=== PATIENT | female | born 1985 | race Caucasian/White ===

== ENCOUNTER 2022-08-16 10:04 | Emergency (ER) | payer OTHER, SELFPAY ==
[2022-08-16 10:10] VITALS: BP 156/108; PULSE 65; RESP 18; TEMP 36.5; O2SAT 99; BMI 32.0
--- NOTE | 2022-08-16 10:31 | ED.GENADULT ---
HPI - General Adult General Chief complaint: ETOH/Substance Use Stated complaint: Alcohol detox Time Seen by Provider: 08/16/22 10:30 Source: patient and family (mother) Mode of arrival: ambulatory Limitations: no limitations History of Present Illness HPI narrative: Patient is a 36 year old assigned female at with no reported medical history presenting to the emergency department today requesting alcohol detox. Patient states that she has been drinking 7-8 nips of alcohol per day for quite awhile. Patient states that in the past she was able to titrate herself down but lately she has not been able to and she would like help. Patient denies any dizziness, lightheadedness, abdominal pain, vomiting, fever, chills, blurry vision, double vision, loss of vision, chest pain, difficulty breathing, shortness of breath, back pain, night sweats, pain with urination, increased urinary frequency, increased urinary urgency, blood in her urine or stool, syncope or a near syncopal episode, recent trauma or falls, bowel incontinence, bladder incontinence, bowel retention, bladder retention, or any other complaints at this time. Onset (ago): month(s) Relieving factors: none Exacerbating factors: none Treatments prior to arrival: none Related Data Allergies Allergy/AdvReac Type Severity Reaction Status Date / Time No Known Allergies Allergy Verified 08/16/22 10:52 Review of Systems Constitutional: Constitutional: Reports no additional constitutional complaints, Denies chills, Denies fever(s) and Denies night sweats Eyes: Eyes: Reports no additional eye complaints, Denies blurry vision, Denies change in vision, Denies diplopia, Denies eye discharge, Denies loss of vision and Denies eye pain ENT: Denies dizziness Cardiovascular: Cardiovascular: Reports no additional cardiovascular complaints, Denies chest pain, Denies lightheadedness, Denies Loss of Consciousness and Denies dyspnea Respiratory: Respiratory: Reports no additional respiratory complaints and Denies dyspnea Gastrointestinal: Gastrointestinal: Reports no additional gastrointestinal complaints, Denies abdominal pain, Denies melena, Denies hematochezia, Denies change in bowel habits and Denies change in stool character Genitourinary: Genitourinary: Denies hematuria, Denies urinary frequency, Denies dysuria, Denies urinary incontinence, Denies urinary hesitancy and Denies urinary urgency Musculoskeletal: Musculoskeletal: Reports no additional musculoskeletal complaints, Denies numbness and Denies tingling Neurologic: Denies dizziness, Denies loss of vision, Denies numbness and Denies tingling Psychiatric: Psychiatric: Reports no additional psychiatric complaints Endocrine: Endocrine: Reports no additional endocrine complaints Hematologic/Lymphatic: Hematologic/Lymphatic: Reports no additional hematologic/lymphatic complaints Allergic/Immunologic: Allergic/Immunologic: Reports no additional allergic/immunologic complaints PMFSH Past Medical History Attestation statement: The following information was validated with the patient. Source: old records reviewed, obtained from family (patient's mother) and nursing notes reviewed Social History Social History Advance Directives: No Advance Directives Information Provided: Yes Patient : No Physical Exam ED Vital Signs: Vital Signs - 24 hr 08/16/22 10:10 08/16/22 14:18 Temperature 97.7 F Pulse Rate 65 73 Respiratory Rate 18 16 Blood Pressure 156/108 H 146/93 H Pulse Oximetry 99 96 Oxygen Delivery Method Room Air Room Air BMI result Body Mass Index 32.0 Const General: cooperative, no acute distress, alert and awake Nutritional Appearance: well nourished Orientation/consciousness: patient oriented x3 Limitations: no limitations HENMT Head: Yes normal to inspection and Yes atraumatic Ears: hearing grossly normal bilaterally and external ears normal General nose exam: Normal external nose present, no nasal discharge noted and no epistaxis Face and sinus: Yes normal facial exam, No abrasion and No laceration Mouth: Normal oral and palatal mucosa present, no drooling and no muffled voice Eyes General: appearance normal, both eyes and all related structures Periorbital: periorbital findings normal Eyelids: Yes eyelids normal Conjunctivae: conjunctivae normal Pupils: Equal, round and reactive pupils present EOM: EOMs intact bilaterally Neck Neck: Yes normal visual inspection, Yes full ROM and Yes no lymphadenopathy Chest Chest palpation & inspection: normal inspection of the chest Resp Effort & Inspection: normal respiratory effort and able to speak in complete sentences GI Inspection: Yes normal to inspection Palpation (GI): Soft to palpation, not firm, nontender, no guarding and not rigid Neuro General: patient oriented x3 and moves all extremities Cranial nerves: Yes Equal, round and reactive pupils present Cognition (Neuro): normal cognition Motor exam (neuro): 5/5 motor strength present throughout Sensory Exam: Normal double simultaneous stimulation for sensation Coordination: [id number] test normal Extrem General: Yes normal to inspection, Yes full ROM and Yes capillary refill normal Psych Appearance: grossly normal Mental Status: mental status grossly normal Affect: normal affect Attitude: cooperative Thought process: Normal thought process present Thought content: Normal thought content present Insight: Good insight present (Psych) Medications Administered Discontinued Medications Generic Name Dose Route Start Last Admin Trade Name Sander PRN Reason Stop Dose Admin Sodium Chloride 1,000 mls @ 999 mls/hr 08/16/22 11:45 08/16/22 13:38 Ns IV 08/16/22 12:45 Infused .Q1H1M ROSLYN Infusion Ondansetron HCl 4 mg 08/16/22 12:18 08/16/22 12:32 Ondansetron Hcl 4 Mg/2 Ml Vial IVPUSH 08/16/22 12:19 4 mg ONCE ONE Administration Medical Decision Making Medical Decision Making [facility] Narrative: Patient is a 36 year old assigned female at with no reported medical history presenting to the emergency department today requesting alcohol detox. Patient's physical exam was unremarkable. Patient's blood work was unremarkable. Patient met with the recovery team who was able to get her accepted into [facility]. I explained my physical exam findings as well as all test results to the patient and the patient's mother. I answered all questions asked by the patient and the patient's mother. I stressed the importance of the patient taking her medication as prescribed. I stressed the importance of the patient following up with her primary care provider. I stressed the importance of the patient returning to the emergency department immediately if her symptoms were to worsen or if she were to develop any dizziness, shortness of breath, difficulty breathing, chest pain, blurry vision, loss of vision, nausea, vomiting, abdominal pain, fever, chills, back pain, or any other complaints. Patient verbalized agreement and understanding with this treatment plan and discharge. Differential Diagnosis Differential Diagnoses: The differential diagnosis associated with the presentation includes alcohol detox Lab Data [facility] Lab Attestation statement: I reviewed the patient's lab results. 08/16/22 11:02 08/16/22 11:02 Labs: Lab Results 08/16/22 08/16/22 08/16/22 Range/Units 11:02 11:02 11:02 WBC 9.5 (4.8-10.8) X10*3/uL RBC 4.59 (4.20-5.50) X10*6/uL Hgb 14.4 (12.0-16.0) g/dl Hct 41.7 (37.0-47.0) % MCV 90.8 (80.0-98.0) fL MCH 31.4 (27.0-33.0) pg MCHC 34.5 (31.0-35.0) g/dl RDW 14.1 (11.0-16.0) % Plt Count 265 (160-400) X10*3/uL MPV 10.6 (9.4-12.3) fL Immature Gran % (Auto) 0.3 (0.0-0.4) % Neut % (Auto) 79.2 H (45-73) % Lymph % (Auto) 14.2 L (20-40) % Doddridge % (Auto) 5.5 (2-11) % Eos % (Auto) 0.3 (0-4) % Baso % (Auto) 0.5 (0-2) % Lymph # (Auto) 1.3 (1.2-4.9) X10*3/uL Doddridge # (Auto) 0.5 (0.1-1.2) X10*3/uL Eos # (Auto) 0.0 (0.0-0.4) X10*3/uL Baso # (Auto) 0.1 (0.0-0.2) X10*3/uL Abs Immat Gran (auto) 0.03 (0.00-0.03) X10*3/uL Absolute Neuts (auto) 7.5 (2.0-8.3) x10*3/uL Absolute Nucleated RBC 0.000 (0.0-0.012) X10*3/uL Nucleated RBC % (auto) 0.0 (0.0-0.2) /100WBC Sodium 140 (135-145) mmol/L Potassium 4.0 (3.3-5.1) mmol/L Chloride 105 (96-108) mmol/L Carbon Dioxide 19 L (22-29) mmol/L Anion Gap 20 (12-20) BUN 5 L (9-16) mg/dL Creatinine 0.84 (0.5-1.4) mg/dL Estim Creat Clear Calc 91.2 Estimated GFR > 60 Random Glucose 112 (60-115) mg/dL Calcium 9.1 (8.4-10.2) mg/dL Total Bilirubin 0.8 (0.0-1.0) mg/dL Direct Bilirubin 0.2 (0.0-0.5) mg/dL AST 83 H (5-31) U/L ALT 48 H (0-31) U/L Alkaline Phosphatase 91 (39-117) U/L Total Protein 7.1 (6.5-8.0) g/dL Albumin 4.0 (3.5-5.0) g/dL Lipase 24 (8-78) U/L Ethyl Alcohol 108 mg/dL COVID-19 (CONSTANTINE) (Negative) COVID-19 Clin Com 08/16/22 Range/Units 11:34 WBC (4.8-10.8) X10*3/uL RBC (4.20-5.50) X10*6/uL Hgb (12.0-16.0) g/dl Hct (37.0-47.0) % MCV (80.0-98.0) fL MCH (27.0-33.0) pg MCHC (31.0-35.0) g/dl RDW (11.0-16.0) % Plt Count (160-400) X10*3/uL MPV (9.4-12.3) fL Immature Gran % (Auto) (0.0-0.4) % Neut % (Auto) (45-73) % Lymph % (Auto) (20-40) % Doddridge % (Auto) (2-11) % Eos % (Auto) (0-4) % Baso % (Auto) (0-2) % Lymph # (Auto) (1.2-4.9) X10*3/uL Doddridge # (Auto) (0.1-1.2) X10*3/uL Eos # (Auto) (0.0-0.4) X10*3/uL Baso # (Auto) (0.0-0.2) X10*3/uL Abs Immat Gran (auto) (0.00-0.03) X10*3/uL Absolute Neuts (auto) (2.0-8.3) x10*3/uL Absolute Nucleated RBC (0.0-0.012) X10*3/uL Nucleated RBC % (auto) (0.0-0.2) /100WBC Sodium (135-145) mmol/L Potassium (3.3-5.1) mmol/L Chloride (96-108) mmol/L Carbon Dioxide (22-29) mmol/L Anion Gap (12-20) BUN (9-16) mg/dL Creatinine (0.5-1.4) mg/dL Estim Creat Clear Calc Estimated GFR Random Glucose (60-115) mg/dL Calcium (8.4-10.2) mg/dL Total Bilirubin (0.0-1.0) mg/dL Direct Bilirubin (0.0-0.5) mg/dL AST (5-31) U/L ALT (0-31) U/L Alkaline Phosphatase (39-117) U/L Total Protein (6.5-8.0) g/dL Albumin (3.5-5.0) g/dL Lipase (8-78) U/L Ethyl Alcohol mg/dL COVID-19 (CONSTANTINE) Negative (Negative) COVID-19 Clin Com See Note Independent Historian Clinical information obtained from an independent historian. History obtained from or confirmed by: Parent (patient's mother) Discharge Plan Discharge Clinical Impression: Alcoholic intoxication, Alcohol abuse Patient Disposition: Home, Self-Care Instructions: Abuse of Alcohol (ED) Additional Instructions: Follow up with your primary care provider. Return to the emergency department immediately if your symptoms worsen or if you develop any dizziness, shortness of breath, difficulty breathing, chest pain, blurry vision, loss of vision, nausea, vomiting, abdominal pain, fever, chills, back pain, or any other complaints. Referrals: Anika Gonzalez MD [Primary Care Provider] - Print Language: Maori
[2022-08-16 11:06] LABS: MANUAL DIFF FLAG NO
[2022-08-16 11:09] LABS: Basophils Absolute Auto 0.1 X10*3/uL (0.0-0.2); Basophils Percent Auto 0.5 % (0-2); Eosinophils Percent Auto 0.3 % (0-4); Hematocrit 41.7 % (37.0-47.0); Hemoglobin 14.4 g/dl (12.0-16.0); Imm Gran Abs Auto 0.03 X10*3/uL (0.00-0.03); Imm Gran Pct Auto 0.3 % (0.0-0.4); Lymphocytes Absolute Auto 1.3 X10*3/uL (1.2-4.9); Lymphocytes Percent Auto 14.2 % (20-40); Mean Corpuscular HGB Conc 34.5 g/dl (31.0-35.0); Mean Corpuscular Hemoglobin 31.4 pg (27.0-33.0); Mean Corpuscular Volume 90.8 fL (80.0-98.0); Mean Platelet Volume 10.6 fL (9.4-12.3); Monocytes Absolute Auto 0.5 X10*3/uL (0.1-1.2); Monocytes Percent Auto 5.5 % (2-11); Neutrophils Absolute Auto 7.5 x10*3/uL (2.0-8.3); Neutrophils Percent Auto 79.2 % (45-73); Platelet Count 265 X10*3/uL (160-400); Red Blood Count 4.59 X10*6/uL (4.20-5.50); Red Cell Distribution Width 14.1 % (11.0-16.0); White Blood Count 9.5 X10*3/uL (4.8-10.8)
[2022-08-16 11:28] LABS: Ethanol 108 mg/dL
--- NOTE | 2022-08-16 11:42 | MHC.RECOVSUP ---
Met with pt in ED21 for potential ATS bed search. Pt reports drinking 8 nips a day for about 3 months after having been sober for about 2-3 months. Pt has no history of ATS or PIERRE but would like to go to an ATS facility. Pt was provided with resources and had no additional questions or concerns at this time.
[2022-08-16] MEDS: 0.9 % Sodium Chloride 1,000 ML 999 ML IV (11:44)
[2022-08-16 11:53] LABS: Alanine Aminotransferase 48 U/L (0-31); Alkaline Phosphatase 91 U/L (39-117); Anion Gap 20 (12-20); Aspartate Amino Transferase 83 U/L (5-31); Bilirubin Direct 0.2 mg/dL (0.0-0.5); Bilirubin Total 0.8 mg/dL (0.0-1.0); Blood Urea Nitrogen 5 mg/dL (9-16); Calcium 9.1 mg/dL (8.4-10.2); Carbon Dioxide 19 mmol/L (22-29); Chloride 105 mmol/L (96-108); Creatinine Clr Calc Pharmacy 91.2; Estimated Glomerular Filt Rate > 60; Glucose Random 112 mg/dL (60-115); Lipase 24 U/L (8-78); Sodium 140 mmol/L (135-145); Total Protein 7.1 g/dL (6.5-8.0)
[2022-08-16 11:58] LABS: COVID-19 Test Negative (Negative); IDNOW Serial# 08D9AD1C
[2022-08-16] MEDS: ondansetron HCL 4 MG/2 ML VIAL IVPUSH (12:32)
[2022-08-16 14:18] VITALS: BP 146/93; PULSE 73; RESP 16; O2SAT 96
--- NOTE | 2022-08-16 14:23 | MHC.RECOVSUP ---
Pt accepted to [facility], pts mother will drive her there upon discharge.
== END 2022-08-16 14:58 | disposition home or self-care (01) ==
PROVIDERS: Physician Assistant Medical; Emergency Provider Student in an Organized Health Care Education/Training Program; PCP Internal Medicine
DX: F10.129 Alcohol abuse with intoxication, unspecified (principal); Y90.5 Blood alcohol level of 100-119 mg/100 ml; Z20.822 Contact with and (suspected) exposure to COVID-19; Z20.828 Contact with and (suspected) exposure to other viral communicable diseases; Z79.899 Other long term (current) drug therapy
CPT/HCPCS: 36415; 80053; 82077; 82248; 83690; 85025; 87635; 96361; 96374; 99284; 99285; J2405

== ENCOUNTER → 2022-08-24 13:42 | Outpatient (BNVA) | payer OTHER, SELFPAY | PROVIDERS: PCP Internal Medicine; Visit Provider Nurse Practitioner Psychiatric/Mental Health | DX: Z13.89 Encounter for screening for other disorder (principal) ==

== ENCOUNTER → 2022-09-08 10:31 | Outpatient (BNVA) | payer OTHER, SELFPAY | PROVIDERS: PCP Internal Medicine; Visit Provider Nurse Practitioner Psychiatric/Mental Health | DX: F10.20 Alcohol dependence, uncomplicated (principal); Z51.81 Encounter for therapeutic drug level monitoring; Z32.02 Encounter for pregnancy test, result negative | CPT/HCPCS: 80305; 81025; 96372 ==

== ENCOUNTER → 2022-10-07 13:19 | Outpatient (BNVA) | payer OTHER, SELFPAY | PROVIDERS: PCP Internal Medicine; Visit Provider Nurse Practitioner Psychiatric/Mental Health | DX: F10.20 Alcohol dependence, uncomplicated (principal); Z51.81 Encounter for therapeutic drug level monitoring; Z32.00 Encounter for pregnancy test, result unknown; Z79.899 Other long term (current) drug therapy | CPT/HCPCS: 80305; 81025; 96372 ==

== ENCOUNTER 2022-11-07 15:26 | Outpatient (AMB) | payer OTHER, SELFPAY ==
--- NOTE | 2022-11-07 15:31 | A.OFFVIS_ITS ---
Intake Vital Signs 11/07/22 15:39 BP 132/80 Blood Pressure Location Lt radial Position Sitting Pulse 82 Pulse Source Pulse Oximeter Pulse Oximetry (%) 99 Oxygen Delivery Method Room Air Intake Visit Reasons: Kamala Inj Intake Note: the patient presents for a kamala inj Consultant Nurse Required: No Allergies amoxicillin Allergy (Unknown, Verified 11/07/22 15:31) Unknown Do you need a note to return to daycare/school/sports/work: No HPI Kamala Inj HPI Details Patient presents for follow up Reports that she continues to do well with recover Tolerating injection. Denies any cravings Review of Systems Const Reports as per HPI and Reports no additional complaints Physical Exam Vital Signs: Last Vital Signs Pulse 82 11/07/22 15:39 BP 132/80 11/07/22 15:39 Pulse Ox 99 11/07/22 15:39 Oxygen Delivery Method Room Air 11/07/22 15:39 Const General: cooperative, healthy appearing, comfortable and no acute distress Nutritional Appearance: average body habitus Orientation/consciousness: patient oriented x3 Limitations: no limitations Neuro General: patient oriented x3 Psych Appearance: grossly normal Mental Status: mental status grossly normal Speech and movement: Normal speech and movement present Affect: normal affect Attitude: cooperative Thought process: Normal thought process present Thought content: Normal thought content present Insight: Good insight present (Psych) Judgement: Good judgement present (Psych) Office Meds Vivitrol ER Performing Provider: Juanita Jean-Baptiste CNP Administered by: Shilpi Swift RN on 11/07/22 16:09 Dose Route Admin Location Lot Number Expiration Date NDC Quality Assurance Monitor Chassis 380 mg IM LG [id number] 03/23/25 [id number] [employer] Comments: T/W assessed for s/s of infection, no pain, no swelling, no redness, no fever, no exudate. Pt reminded to monitor for above and call the [facility]. Pt verbalized understanding. Pt tolerated injection. Results AMB 14 Panel Urine Drug Screen Urine Marijuana (THC) Negative Last Edit by Jolynn Burk CMA on 11/07/22 15:41 Urine Cocaine Negative Last Edit by Jolynn Burk CMA on 11/07/22 15:41 Urine Morphine Negative Last Edit by Jolynn Burk CMA on 11/07/22 15:41 Urine Methamphetamine Negative Last Edit by Jolynn Burk CMA on 11/07/22 15:41 Urine Amphetamine Negative Last Edit by Jolynn Burk CMA on 11/07/22 15:4 1 Urine Benzodiazepine Negative Last Edit by Jolynn Burk CMA on 11/07/22 15:41 Urine Barbiturates Negative Last Edit by Jolynn Burk CMA on 11/07/22 15: 41 Urine Methadone Negative Last Edit by Jolynn Burk CMA on 11/07/22 15:41 Urine Buprenorphine Negative Last Edit by Jolynn Burk CMA on 11/07/22 15 :41 Urine Tricyclic Antidepressant Negative Last Edit by Jolynn Burk CMA on 11/07/22 15:41 Urine MDMA Negative Last Edit by Jolynn Burk CMA on 11/07/22 15:41 Urine Oxycodone Negative Last Edit by Jolynn Burk CMA on 11/07/22 15:41 Urine Phencyclidine Negative Last Edit by Jolynn Burk CMA on 11/07/22 15 :41 Urine Propoxyphene Negative Last Edit by Jolynn Burk CMA on 11/07/22 15: 41 AMB Test Urine AMB Test Urine Negative Last Edit by Jolynn Burk CMA on 15:42 Results Reviewed Results Reviewed: Laboratory Last Values [facility] Negative 11/07/22 15:32 POC Urine Buprenorphine Negative 11/07/22 15:32 POC Urine Morphine Negative 11/07/22 15:32 POC Urine Oxycodone Negative 11/07/22 15:32 POC Urine Methadone Negative 11/07/22 15:32 POC Urine Propoxyphene Negative 11/07/22 15:32 POC Urine Barbiturates Negative 11/07/22 15:32 POC U Tricyclic Antidpr Negative 11/07/22 15:32 POC Urine PCP Negative 11/07/22 15:32 POC Ur Amphetamines Negative 11/07/22 15:32 POC Ur Methamphetamine Negative 11/07/22 15:32 POC Urine MDMA Negative 11/07/22 15:32 POC Ur Benzodiazepine Negative 11/07/22 15:32 POC Urine Cocaine Negative 11/07/22 15:32 POC Ur Marijuana (THC) Negative 11/07/22 15:32 Assessment & Plan Assessment & Plan (1) Alcohol use disorder, severe, dependence: Code(s): F10.20 - Alcohol dependence, uncomplicated Plan: * tolerated injection * relapse prevention discussion * follow up 4 weeks Orders: Orders AMB Naltrexone Injection Patient Supplied Today F10.20 - Alcohol dependence, uncomplicated AMB 14 Panel Urine Drug Screen Today Z51.81 - Encounter for therapeutic drug level monitoring AMB HCG Urine Test Today Z32.01 - Encounter for test, result positive, Z32.02 - Encounter for test, result negative Coding Level of Care Code Est Pt Level 3 (09383) Diagnoses Alcohol use disorder, severe, dependence F10.20
[2022-11-07 15:39] VITALS: BP 132/80; PULSE 82; O2SAT 99
== END 2022-11-07 16:10 | disposition home or self-care (01) ==
LOC: HO.HCC 15:26
PROVIDERS: PCP Internal Medicine; Visit Provider Nurse Practitioner Psychiatric/Mental Health
DX: F10.20 Alcohol dependence, uncomplicated (principal)
CPT/HCPCS: 99213; J2315

== ENCOUNTER → 2022-11-07 15:26 | Outpatient (BNVA) | payer OTHER, SELFPAY | PROVIDERS: PCP Internal Medicine; Visit Provider Nurse Practitioner Psychiatric/Mental Health | DX: F10.20 Alcohol dependence, uncomplicated (principal); Z51.81 Encounter for therapeutic drug level monitoring; Z32.00 Encounter for pregnancy test, result unknown | CPT/HCPCS: 80305; 81025; 96372 ==

== ENCOUNTER 2022-12-09 09:22 | Outpatient (AMB) | payer OTHER, SELFPAY ==
--- NOTE | 2022-12-09 09:24 | MHC.OFFVIS ---
Intake Vital Signs 12/09/22 09:33 BP 128/86 Blood Pressure Location Lt radial Position Sitting Pulse 73 Pulse Source Pulse Oximeter Pulse Oximetry (%) 97 Oxygen Delivery Method Room Air Intake Visit Reasons: Kamala Inj Intake Note: the patient presents for a kamala inj Ios Architect Required: No Allergies amoxicillin Allergy (Unknown, Verified 12/09/22 09:27) Unknown Do you need a note to return to daycare/school/sports/work: No HPI Kamala Inj HPI Details Patient presents for follow-up in Vivitrol injection. Reports that she continues to do well with recovery. Did discuss occasional thoughts of drinking and slight anxiety around this. Reviewed coping strategies and supports. 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 No questions or concerns at this time Review of Systems Const Reports as per HPI and Reports no additional complaints Physical Exam Vital Signs: Last Vital Signs Pulse 73 12/09/22 09:33 BP 128/86 12/09/22 09:33 Pulse Ox 97 12/09/22 09:33 Oxygen Delivery Method Room Air 12/09/22 09:33 Const General: cooperative, healthy appearing, comfortable and no acute distress Nutritional Appearance: average body habitus Orientation/consciousness: patient oriented x3 Limitations: no limitations Neuro General: patient oriented x3 Psych Appearance: grossly normal Mental Status: mental status grossly normal Speech and movement: Normal speech and movement present Affect: normal affect Attitude: cooperative Thought process: Normal thought process present Thought content: Normal thought content present Insight: Good insight present (Psych) Judgement: Good judgement present (Psych) Office Meds Vivitrol ER Performing Provider: Juanita Jean-Baptiste CNP Administered by: Flower Asher RN on 12/09/22 09:58 Dose Route Admin Location Lot Number Expiration Date NDC Grounds And Nursery Specialist 380 mg IM RG [id number] 03/23/25 [id number] [employer] Comments: No redness, warmth or drainage to prior injection site. Inj admin today to RG, pt lyric well. Educated on s/sx of infection and instructed to call [facility] with any questions. Results AMB 14 Panel Urine Drug Screen Urine Marijuana (THC) Positive Last Edit by Jolynn Burk CMA on 12/09/22 09:35 Urine Cocaine Negative Last Edit by Jolynn Burk CMA on 12/09/22 09:35 Urine Morphine Negative Last Edit by Jolynn Burk CMA on 12/09/22 09:35 Urine Methamphetamine Negative Last Edit by Jolynn Burk CMA on 12/09/22 09:35 Urine Amphetamine Negative Last Edit by Jolynn Burk CMA on 12/09/22 09:35 Urine Benzodiazepine Negative Last Edit by Jolynn Burk CMA on 12/09/22 09:35 Urine Barbiturates Negative Last Edit by Jolynn Burk CMA on 12/09/22 09:35 Urine Methadone Negative Last Edit by Jolynn Burk CMA on 12/09/22 09:35 Urine Buprenorphine Negative Last Edit by Jolynn Burk CMA on 12/09/22 09:35 Urine Tricyclic Antidepressant Negative Last Edit by Jolynn Burk CMA on 12/09/22 09:35 Urine MDMA Negative Last Edit by Jolynn Burk CMA on 12/09/22 09:35 Urine Oxycodone Negative Last Edit by Jolynn Burk CMA on 12/09/22 09:35 Urine Phencyclidine Negative Last Edit by Jolynn Burk CMA on 12/09/22 09:35 Urine Propoxyphene Negative Last Edit by Jolynn Burk CMA on 12/09/22 09:35 AMB Test Urine AMB Test Urine Negative Last Edit by Jolynn Burk CMA on 12/09/22 09:36 Results Reviewed Results Reviewed: Laboratory Last Values [facility] Negative 12/09/22 09:27 POC Urine Buprenorphine Negative 12/09/22 09:27 POC Urine Morphine Negative 12/09/22 09:27 POC Urine Oxycodone Negative 12/09/22 09:27 POC Urine Methadone Negative 12/09/22 09:27 POC Urine Propoxyphene Negative 12/09/22 09:27 POC Urine Barbiturates Negative 12/09/22 09:27 POC U Tricyclic Antidpr Negative 12/09/22 09:27 POC Urine PCP Negative 12/09/22 09:27 POC Ur Amphetamines Negative 12/09/22 09:27 POC Ur Methamphetamine Negative 12/09/22 09:27 POC Urine MDMA Negative 12/09/22 09:27 POC Ur Benzodiazepine Negative 12/09/22 09:27 POC Urine Cocaine Negative 12/09/22 09:27 POC Ur Marijuana (THC) Positive 12/09/22 09:27 Assessment & Plan Assessment & Plan (1) Alcohol use disorder, severe, dependence: Code(s): F10.20 - Alcohol dependence, uncomplicated Plan: Relapse prevention discussion Tolerated injection Follow up 1 month Orders: Orders AMB Naltrexone Injection Patient Supplied 12/09/22 F10.20 - Alcohol dependence, uncomplicated AMB 14 Panel Urine Drug Screen 12/09/22 Z51.81 - Encounter for therapeutic drug level monitoring AMB HCG Urine Test 12/09/22 Z32.01 - Encounter for test, result positive, Z32.02 - Encounter for test, result negative Coding Level of Care Code Est Pt Level 3 (84473) Diagnoses Alcohol use disorder, severe, dependence F10.20
[2022-12-09 09:33] VITALS: BP 128/86; PULSE 73; O2SAT 97
== END 2022-12-09 10:03 | disposition home or self-care (01) ==
LOC: HO.HCC 09:22
PROVIDERS: PCP Internal Medicine; Visit Provider Nurse Practitioner Psychiatric/Mental Health
DX: F10.20 Alcohol dependence, uncomplicated (principal)
CPT/HCPCS: 99213; J2315

== ENCOUNTER → 2022-12-09 09:22 | Outpatient (BNVA) | payer OTHER, SELFPAY | PROVIDERS: PCP Internal Medicine; Visit Provider Nurse Practitioner Psychiatric/Mental Health | DX: F10.20 Alcohol dependence, uncomplicated (principal) | CPT/HCPCS: 80305; 81025; 96372 ==

== ENCOUNTER 2023-01-09 09:49 | Outpatient (AMB) | payer OTHER, SELFPAY ==
--- NOTE | 2023-01-09 09:57 | AM.OFFVISNUR ---
Intake Vital Signs 01/09/23 10:07 BP 124/82 Blood Pressure Location Lt radial Position Sitting Pulse 80 Pulse Source Pulse Oximeter Pulse Oximetry (%) 99 Oxygen Delivery Method Room Air Intake Visit Reasons: Kamala Inj Intake Note: the patient presents for a kamala inj Wet Cotton Feeder Required: No Allergies amoxicillin Allergy (Unknown, Verified 01/09/23 09:57) Unknown Do you need a note to return to daycare/school/sports/work: No Results AMB 14 Panel Urine Drug Screen Urine Marijuana (THC) Positive Last Edit by Jolynn Burk CMA on 01/09/23 10:05 Urine Cocaine Negative Last Edit by Jolynn Burk CMA on 01/09/23 10:05 Urine Morphine Negative Last Edit by Jolynn Burk CMA on 01/09/23 10:05 Urine Methamphetamine Negative Last Edit by Jolynn Burk CMA on 01/09/23 10:05 Urine Amphetamine Negative Last Edit by Jolynn Burk CMA on 01/09/23 10:05 Urine Benzodiazepine Negative Last Edit by Jolynn Burk CMA on 01/09/23 10:05 Urine Barbiturates Negative Last Edit by Jolynn Burk CMA on 01/09/23 10:05 Urine Methadone Negative Last Edit by Jolynn Burk CMA on 01/09/23 10:05 Urine Buprenorphine Negative Last Edit by Jolynn Burk CMA on 01/09/23 10:05 Urine Tricyclic Antidepressant Negative Last Edit by Jolynn Burk CMA on 01/09/23 10:05 Urine MDMA Negative Last Edit by Jolynn Burk CMA on 01/09/23 10:05 Urine Oxycodone Negative Last Edit by Jolynn Burk CMA on 01/09/23 10:05 Urine Phencyclidine Negative Last Edit by Jolynn Burk CMA on 01/09/23 10:05 Urine Propoxyphene Negative Last Edit by Jolynn Burk CMA on 01/09/23 10:05 AMB Test Urine AMB Test Urine Negative Last Edit by Jolynn Burk CMA on 01/09/23 10:09 Coding Assessment & Plan Assessment & Plan Orders: Orders AMB HCG Urine Test Today Z32.01 - Encounter for test, result positive, Z32.02 - Encounter for test, result negative AMB 14 Panel Urine Drug Screen Today F10.20 - Alcohol dependence, uncomplicated
[2023-01-09 10:07] VITALS: BP 124/82; PULSE 80; O2SAT 99
== END 2023-01-09 10:56 | disposition home or self-care (01) ==
PROVIDERS: PCP Internal Medicine; Visit Provider Nurse Practitioner Family
DX: Z32.02 Encounter for pregnancy test, result negative (principal); Z32.01 Encounter for pregnancy test, result positive; F10.20 Alcohol dependence, uncomplicated
CPT/HCPCS: J2315

== ENCOUNTER → 2023-01-09 09:49 | Outpatient (BNVA) | payer OTHER, SELFPAY | PROVIDERS: PCP Internal Medicine | DX: F10.20 Alcohol dependence, uncomplicated (principal) | CPT/HCPCS: 80305; 81025; 96372 ==

== ENCOUNTER 2023-02-07 15:26 | Outpatient (AMB) | payer OTHER, SELFPAY ==
--- NOTE | 2023-02-07 15:43 | AM.OFFVISNUR ---
Intake Vital Signs 02/07/23 15:44 BP 122/78 Blood Pressure Location Lt radial Position Sitting Pulse 63 Pulse Source Pulse Oximeter Pulse Oximetry (%) 98 Oxygen Delivery Method Room Air Intake Visit Reasons: Kamala Inj Intake Note: the patient is here for a kamala inj Orchardist Required: No Allergies amoxicillin Allergy (Unknown, Verified 02/07/23 15:45) Unknown Do you need a note to return to daycare/school/sports/work: No Nursing Note Met with pt for AUD follow up and Vivitrol injection. Pt reports this is 6th injection and will be 6 months since last drink on 02/15. Pt reports father is starting treatment next week for newly diagnosed cancer. 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 Pt reports she has attended AA, gone to counseling, and utilized a men's golf coach in the past but does not find them helpful right now. Pt reports having a lot of family support which has been helpful in maintaining abstinence. Denies questions or concerns at this time. Office Meds Vivitrol 380 mg intramuscular suspension,extended release Performing Provider: Juanita Jean-Baptiste CNP Performing Location: [facility] [[email or web address] Administered by: Loraine Barnhart on 02/07/23 16:05 Dose Route Admin Location Dispensed Lot Number Expiration Date FORMERLY NAMED [facility] Heavy Equipment Service Manager 380 mg IM RG 380 mg 2023-1012T 06/21/25 04731-254-22 [employer] Comments: No warmth, or redness to previous injection site. Pt tolerated injection well, educated to call [facility] with any questions or concerns, educated to monitor injection site for redness, warmth, or drainage. Results AMB Test Urine AMB Test Urine Negative Last Edit by Jolynn Burk CMA on 02/07/23 15:46 Coding Assessment & Plan Assessment & Plan Orders: Orders AMB Naltrexone Injection Patient Supplied Today F10.20 - Alcohol dependence, uncomplicated AMB HCG Urine Test Today Z32.01 - Encounter for test, result positive, Z32.02 - Encounter for test, result negative
[2023-02-07 15:44] VITALS: BP 122/78; PULSE 63; O2SAT 98
== END 2023-02-07 15:59 | disposition home or self-care (01) ==
PROVIDERS: PCP Internal Medicine
DX: Z32.02 Encounter for pregnancy test, result negative (principal); Z32.01 Encounter for pregnancy test, result positive; F10.20 Alcohol dependence, uncomplicated
CPT/HCPCS: J2315

== ENCOUNTER → 2023-02-07 15:26 | Outpatient (BNVA) | payer OTHER, SELFPAY | PROVIDERS: PCP Internal Medicine; Visit Provider Nurse Practitioner Family | DX: F10.20 Alcohol dependence, uncomplicated (principal) | CPT/HCPCS: 81025; 96372 ==

== ENCOUNTER 2023-03-07 10:29 | Outpatient (AMB) | payer OTHER, SELFPAY ==
--- NOTE | 2023-03-07 10:33 | MHC.OFFVIS ---
Intake Vital Signs 03/07/23 10:41 BP 110/70 Blood Pressure Location Lt radial Position Sitting Pulse 74 Pulse Source Pulse Oximeter Pulse Oximetry (%) 97 Oxygen Delivery Method Room Air Intake Visit Reasons: Kamala Inj Intake Note: The patient is here for the kamala inj Clinical Applications Manager Required: No Allergies amoxicillin Allergy (Unknown, Verified 03/07/23 10:34) Unknown Do you need a note to return to daycare/school/sports/work: No HPI Kamala Inj HPI Details Pt presents for AUD treatment and follow up. Deneis any concerns related to recovery this past month. Went to [place] for vacation about a week and a half ago. Reports she had a good month over all. Denies any concerns about the injection. Review of Systems Const Reports as per HPI Physical Exam Vital Signs: Last Vital Signs Pulse 74 03/07/23 10:41 BP 110/70 03/07/23 10:41 Pulse Ox 97 03/07/23 10:41 Oxygen Delivery Method Room Air 03/07/23 10:41 Const General: cooperative and healthy appearing Resp Effort & Inspection: normal respiratory effort Skin General skin exam: no rashes or lesions noted Psych Appearance: grossly normal Mental Status: mental status grossly normal Speech and movement: Normal speech and movement present Affect: normal affect Office Meds Vivitrol 380 mg intramuscular suspension,extended release Performing Provider: Juanita Jean-Baptiste CNP Performing Location: [facility] Administered by: Samantha Marcelino RN on 03/07/23 11:17 Dose Route Admin Location Dispensed Lot Number Expiration Date [facility] Sales Designer 380 mg IM LG 380 mg 2023-3006T 04/23/25 54737-461-24 [employer] Comments: Pt tolerated injection well, denies concerns about previous injection. Educated on signs and symptoms of infection, encouraged to call [facility] with any questions or concerns, Pt verbalized understanding. Results AMB Test Urine AMB Test Urine Negative Last Edit by Jolynn Burk CMA on 03/07/23 10:43 Results Reviewed Results Reviewed: Laboratory Last Values Tst Clinic Negative 03/07/23 10:34 Assessment & Plan Assessment & Plan (1) Alcohol use disorder, severe, dependence: Code(s): F10.20 - Alcohol dependence, uncomplicated Plan: Pt tolerating injection well. Follow up in 4 weeks. Call clinic with any questions or concerns. Assessment and plan reviewed with GRAZYNA Asher Orders: Orders AMB HCG Urine Test 03/07/23 Z32.01 - Encounter for test, result positive, Z32.02 - Encounter for test, result negative AMB Naltrexone Injection 03/07/23 F10.20 - Alcohol dependence, uncomplicated Coding Level of Care Code Est Pt Level 3 (63853) Diagnoses Alcohol use disorder, severe, dependence F10.20
[2023-03-07 10:41] VITALS: BP 110/70; PULSE 74; O2SAT 97
== END 2023-03-07 11:13 | disposition home or self-care (01) ==
PROVIDERS: PCP Internal Medicine; Visit Provider Nurse Practitioner Psychiatric/Mental Health
DX: F10.20 Alcohol dependence, uncomplicated (principal)
CPT/HCPCS: 99213

== ENCOUNTER → 2023-03-07 10:29 | Outpatient (BNVA) | payer OTHER, SELFPAY | PROVIDERS: PCP Internal Medicine; Visit Provider Nurse Practitioner Psychiatric/Mental Health | DX: F10.20 Alcohol dependence, uncomplicated (principal); Z51.81 Encounter for therapeutic drug level monitoring; Z79.899 Other long term (current) drug therapy; Z32.02 Encounter for pregnancy test, result negative | CPT/HCPCS: 81025; 96372; J2315 ==

== ENCOUNTER 2023-04-05 15:24 | Outpatient (AMB) | payer OTHER, SELFPAY ==
--- NOTE | 2023-04-05 15:35 | AM.OFFVISNUR ---
Intake Vital Signs 04/05/23 15:44 BP 110/74 Blood Pressure Location Lt radial Position Sitting Pulse 67 Pulse Source Pulse Oximeter Pulse Oximetry (%) 99 Oxygen Delivery Method Room Air Intake Visit Reasons: Kamala Inj Intake Note: THE PATIENT PRESENTS FOR A KAMALA INJ Production Analyst Required: No Allergies amoxicillin Allergy (Unknown, Verified 04/05/23 15:45) Unknown Do you need a note to return to daycare/school/sports/work: No Nursing Note Pt presents for AUD treatment and follow up. Very bright, pleasant, easily engages in conversation. Denies any concerns related to recovery this past month, reports she had a good month overall. Denies any concerns about the injection. Office Meds Vivitrol 380 mg intramuscular suspension,extended release Performing Provider: Juanita Jean-Baptiste CNP Performing Location: [facility] Administered by: Loraine Barnhart on 04/05/23 16:01 Dose Route Admin Location Dispensed Lot Number Expiration Date NDC Stage Builder 380 mg IM RG 380 mg 2023-1020T 06/21/25 [id number] [employer] Comments: Pt tolerated injection well. Educated on signs/symptoms of infection, encouraged to call the [facility] with questions or concerns. Results AMB Test Urine AMB Test Urine Negative Last Edit by Jolynn Burk CMA on 04/05/23 16:06 Coding Assessment & Plan Assessment & Plan Orders: Orders AMB 14 Panel Urine Drug Screen Today Z51.81 - Encounter for therapeutic drug level monitoring AMB HCG Urine Test Today Z32.02 - Encounter for test, result negative, Z51.81 - Encounter for therapeutic drug level monitoring AMB Naltrexone Injection Patient Supplied Today F10.20 - Alcohol dependence, uncomplicated
[2023-04-05 15:44] VITALS: BP 110/74; PULSE 67; O2SAT 99
== END 2023-04-05 16:23 | disposition home or self-care (01) ==
PROVIDERS: PCP Internal Medicine
DX: Z32.02 Encounter for pregnancy test, result negative (principal); Z51.81 Encounter for therapeutic drug level monitoring; F10.20 Alcohol dependence, uncomplicated

== ENCOUNTER → 2023-04-05 15:24 | Outpatient (BNVA) | payer OTHER, SELFPAY | PROVIDERS: PCP Internal Medicine | DX: F10.20 Alcohol dependence, uncomplicated (principal) | CPT/HCPCS: 81025; 96372; J2315 ==

== ENCOUNTER 2023-05-04 15:46 | Outpatient (AMB) | payer OTHER, SELFPAY ==
--- NOTE | 2023-05-04 15:50 | AM.OFFVISNUR ---
Intake Vital Signs 05/04/23 15:58 BP 122/70 Blood Pressure Location Lt radial Position Sitting Pulse 74 Pulse Source Pulse Oximeter Pulse Oximetry (%) 98 Oxygen Delivery Method Room Air Intake Visit Reasons: Kamala Inj Intake Note: the patient is here for a kamala inj Oil Well Service Operator Helper Required: No Allergies amoxicillin Allergy (Unknown, Verified 05/04/23 15:52) Unknown Do you need a note to return to daycare/school/sports/work: No Nursing Note Pt tolerated injection well, denies concerns about previous injection. Educated on signs and symptoms of infection, encouraged to call [facility] with any questions or concerns, pt verbalized understanding. Office Meds Vivitrol 380 mg intramuscular suspension,extended release Performing Provider: Juanita Jean-Baptiste CNP Performing Location: [facility] Administered by: Lakshmi Diaz RN on 05/04/23 16:14 Dose Route Admin Location Dispensed Lot Number Expiration Date [facility] Quality Systems Specialist 380 mg IM LG 380 mg 2023-1019T 07/22/25 31776-333-02 [employer] Results AMB Test Urine AMB Test Urine Negative Last Edit by Jolynn Burk CMA on 05/04/23 15:59 Coding Assessment & Plan Assessment & Plan Orders: Orders AMB HCG Urine Test Today Z32.01 - Encounter for test, result positive, Z32.02 - Encounter for test, result negative AMB Naltrexone Injection Patient Supplied Today F10.20 - Alcohol dependence, uncomplicated
[2023-05-04 15:58] VITALS: BP 122/70; PULSE 74; O2SAT 98
== END 2023-05-04 16:14 | disposition home or self-care (01) ==
PROVIDERS: PCP Internal Medicine
DX: Z32.02 Encounter for pregnancy test, result negative (principal); Z32.01 Encounter for pregnancy test, result positive; F10.20 Alcohol dependence, uncomplicated

== ENCOUNTER → 2023-05-04 15:46 | Outpatient (BNVA) | payer OTHER, SELFPAY | PROVIDERS: PCP Internal Medicine | DX: F10.20 Alcohol dependence, uncomplicated (principal) | CPT/HCPCS: 81025; 96372; J2315 ==

== ENCOUNTER 2023-06-01 16:18 | Outpatient (AMB) | payer OTHER, SELFPAY ==
--- NOTE | 2023-06-01 16:23 | A.OFFVISCC_ITS ---
Intake Intake Visit Reasons: Kamala Inj Intake Note: The patient presents for a kamala inj Airfield Services Officer Required: No Allergies amoxicillin Allergy (Unknown, Verified 05/04/23 15:52) Unknown Do you need a note to return to daycare/school/sports/work: No Office Meds Vivitrol 380 mg intramuscular suspension,extended release Performing Provider: Flower Asher NP Performing Location: [facility] Administered by: Samantha Marcelino RN on 06/01/23 16:37 Dose Route Admin Location Dispensed Lot Number Expiration Date [facility] Certified Activities Director 380 mg IM rlg 380 mg 2023-3020T 07/22/25 [id number] [employer] Comments: Pt tolerated injection well, denies concerns about previous injection. Educated on signs and symptoms of infection, encouraged to call [facility] with any questions or concerns, Pt verbalized understanding. Results AMB Test Urine AMB Test Urine Negative Last Edit by Jolynn Burk CMA on 17:01 Results Reviewed Results Reviewed: Laboratory Last Values Tst Clinic Negative 06/01/23 16:29 Assessment & Plan Assessment & Plan Orders: Orders AMB HCG Urine Test Today Z32.01 - Encounter for test, result positive, Z32.02 - Encounter for test, result negative AMB Naltrexone Injection Patient Supplied Today F10.20 - Alcohol dependence, uncomplicated Coding
--- NOTE | 2023-06-01 17:01 | AM.OFFVISNUR ---
Intake Intake Visit Reasons: Kamala Inj Allergies amoxicillin Allergy (Unknown, Verified 05/04/23 15:52) Unknown Nursing Note Patient present for 4 week AUD follow up and Vivitrol injection. Pt alert and oriented however tearful reporting that her father had just been placed on comfort measures only at [facility]. Pt reports no issues with previous injections, will return in four weeks for next injection. Pt reminded to call if she has any questions or concerns. Office Meds Vivitrol 380 mg intramuscular suspension,extended release Performing Provider: Flower Asher NP Performing Location: [facility] Administered by: Samantha Marcelino RN on 06/01/23 16:37 Dose Route Admin Location Dispensed Lot Number Expiration Date [facility] Gambreler 380 mg IM rlg 380 mg 2023-3020T 07/22/25 [id number] [employer] Comments: Pt tolerated injection well, denies concerns about previous injection. Educated on signs and symptoms of infection, encouraged to call [facility] with any questions or concerns, Pt verbalized understanding. Results AMB Test Urine AMB Test Urine Negative Last Edit by Jolynn Burk CMA on 06/01/23 17:01 Coding Assessment & Plan Assessment & Plan Orders: Orders AMB HCG Urine Test Today Z32.01 - Encounter for test, result positive, Z32.02 - Encounter for test, result negative AMB Naltrexone Injection Patient Supplied Today F10.20 - Alcohol dependence, uncomplicated
== END 2023-06-01 17:10 | disposition home or self-care (01) ==
PROVIDERS: PCP Internal Medicine
DX: Z32.02 Encounter for pregnancy test, result negative (principal); Z32.01 Encounter for pregnancy test, result positive; F10.20 Alcohol dependence, uncomplicated

== ENCOUNTER → 2023-06-01 16:18 | Outpatient (BNVA) | payer OTHER, SELFPAY | PROVIDERS: PCP Internal Medicine | DX: F10.20 Alcohol dependence, uncomplicated (principal) | CPT/HCPCS: 81025; 96372; J2315 ==

== ENCOUNTER 2023-06-29 16:03 | Outpatient (AMB) | payer OTHER, SELFPAY ==
--- NOTE | 2023-06-29 15:14 | AM.OFFVISNUR ---
Intake Intake Visit Reasons: Kamala Inj Intake Note: the patient presents for a kamala inj Coin Purse Framer Required: No Allergies amoxicillin Allergy (Unknown, Verified 06/29/23 16:09) Unknown Do you need a note to return to daycare/school/sports/work: No Nursing Note Patient present for 4 week AUD visit and Vivitrol injection. Patient is alert, oriented and cooperative with care. Pt reports doing well, her father 3 weeks ago, she is coping well. 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 Pt to call [facility] if any questions or concerns arise and will schedule follow up for next injection/appointment in 4 weeks. Office Meds Vivitrol 380 mg intramuscular suspension,extended release Performing Provider: Flower Asher NP Performing Location: [facility] Administered by: Samantha Marcelino RN on 06/29/23 16:33 Dose Route Admin Location Dispensed Lot Number Expiration Date [employer] Furniture Mover Helper 380 mg IM LG 380 mg 2023-1027T 08/21/25 [id number] [employer] [facility] Comments: Pt tolerated injection well, denies concerns about previous injection. Educated on signs and symptoms of infection, encouraged to call [facility] with any questions or concerns, pt verbalized understanding. Results AMB 14 Panel Urine Drug Screen Urine Marijuana (THC) Negative Last Edit by Jolynn Burk CMA on 06/29/23 16:20 Urine Cocaine Negative Last Edit by Jolynn Burk CMA on 06/29/23 16:20 Urine Morphine Negative Last Edit by Jolynn Burk CMA on 06/29/23 16:20 Urine Methamphetamine Negative Last Edit by Jolynn Burk CMA on 06/29/23 16:20 Urine Amphetamine Negative Last Edit by Jolynn Burk CMA on 06/29/23 16:20 Urine Benzodiazepine Negative Last Edit by Jolynn Burk CMA on 06/29/23 16:20 Urine Barbiturates Negative Last Edit by Jolynn Burk CMA on 06/29/23 16:20 Urine Methadone Negative Last Edit by Jolynn Burk CMA on 06/29/23 16:20 Urine Buprenorphine Negative Last Edit by Jolynn Burk CMA on 06/29/23 16:20 Urine Tricyclic Antidepressant Negative Last Edit by Jolynn Burk CMA on 06/29/23 16:20 Urine MDMA Negative Last Edit by Jolynn Burk CMA on 06/29/23 16:20 Urine Oxycodone Negative Last Edit by Jolynn Burk CMA on 06/29/23 16:20 Urine Phencyclidine Negative Last Edit by Jolynn Burk CMA on 06/29/23 16:20 Urine Propoxyphene Negative Last Edit by Jolynn Burk CMA on 06/29/23 16:20 AMB Test Urine AMB Test Urine Negative Last Edit by Jolynn Burk CMA on 06/29/23 16:21 Coding Assessment & Plan Assessment & Plan Orders: Orders AMB 14 Panel Urine Drug Screen Today Z51.81 - Encounter for therapeutic drug level monitoring AMB Naltrexone Injection Patient Supplied (NC) Today F10.20 - Alcohol dependence, uncomplicated AMB HCG Urine Test Today Z32.01 - Encounter for test, result positive, Z32.02 - Encounter for test, result negative
== END 2023-06-29 16:31 | disposition home or self-care (01) ==
PROVIDERS: PCP Internal Medicine
DX: Z32.02 Encounter for pregnancy test, result negative (principal); Z32.01 Encounter for pregnancy test, result positive; Z51.81 Encounter for therapeutic drug level monitoring; F10.20 Alcohol dependence, uncomplicated

== ENCOUNTER → 2023-06-29 16:03 | Outpatient (BNVA) | payer OTHER, SELFPAY | PROVIDERS: PCP Internal Medicine | DX: F10.20 Alcohol dependence, uncomplicated (principal) | CPT/HCPCS: 80305; 81025; 96372; J2315 ==

== ENCOUNTER 2023-07-27 11:13 | Outpatient (AMB) | payer OTHER, SELFPAY ==
--- NOTE | 2023-07-27 11:21 | MHC.AM.SUB ---
Intake Intake Visit Reasons: Kamala Inj Intake Note: the patient presents for a kamala inj Mathematics Professor Required: No Allergies amoxicillin Allergy (Unknown, Verified 07/27/23 11:21) Unknown Do you need a note to return to daycare/school/sports/work: No Assessment & Plan Assessment & Plan Orders: Orders AMB HCG Urine Test Today Z32.01 - Encounter for test, result positive, Z32.02 - Encounter for test, result negative AMB 14 Panel Urine Drug Screen Today Z51.81 - Encounter for therapeutic drug level monitoring Coding
[2023-07-27 11:25] VITALS: BP 122/78; PULSE 71; O2SAT 99
--- NOTE | 2023-07-27 11:26 | AM.OFFVISNUR ---
Intake Vital Signs 07/27/23 11:25 BP 122/78 Blood Pressure Location Lt radial Position Sitting Pulse 71 Pulse Source Pulse Oximeter Pulse Oximetry (%) 99 Oxygen Delivery Method Room Air Intake Visit Reasons: Kamala Inj Allergies amoxicillin Allergy (Unknown, Verified 07/27/23 11:21) Unknown Nursing Note Patient here for vivitrol injection, is alert and oriented x4, very excited in sobriety stating she wants this to be her last injection. She agrees to call us and come back in with any questions, if she has cravings or has questions. Office Meds Vivitrol 380 mg intramuscular suspension,extended release Performing Provider: Flower Asher NP Performing Location: [facility] Administered by: Lakshmi Diaz RN on 07/27/23 11:27 Dose Route Admin Location Dispensed Lot Number Expiration Date [facility] Churner 380 mg IM RG 380 mg 2023-3025T 08/21/25 10951-169-16 [employer] Results AMB 14 Panel Urine Drug Screen Urine Marijuana (THC) Negative Last Edit by Jolynn Burk CMA on 07/27/23 11:27 Urine Cocaine Negative Last Edit by Jolynn Burk CMA on 07/27/23 11:27 Urine Morphine Negative Last Edit by Jolynn Burk CMA on 07/27/23 11:27 Urine Methamphetamine Negative Last Edit by Jolynn Burk CMA on 07/27/23 11:27 Urine Amphetamine Negative Last Edit by Jolynn Burk CMA on 07/27/23 11:27 Urine Benzodiazepine Negative Last Edit by Jolynn Burk CMA on 07/27/23 11:27 Urine Barbiturates Negative Last Edit by Jolynn Burk CMA on 07/27/23 11:27 Urine Methadone Negative Last Edit by Jolynn Burk CMA on 07/27/23 11:27 Urine Buprenorphine Negative Last Edit by Jolynn Burk CMA on 07/27/23 11:27 Urine Tricyclic Antidepressant Negative Last Edit by Jolynn Burk CMA on 07/27/23 11:27 Urine MDMA Negative Last Edit by Jolynn Burk CMA on 07/27/23 11:27 Urine Oxycodone Negative Last Edit by Jolynn Burk CMA on 07/27/23 11:27 Urine Phencyclidine Negative Last Edit by Jolynn Burk CMA on 07/27/23 11:27 Urine Propoxyphene Negative Last Edit by Jolynn Burk CMA on 07/27/23 11:27 AMB Test Urine AMB Test Urine Negative Last Edit by Jolynn Burk CMA on 07/27/23 11:28 Coding Assessment & Plan Assessment & Plan Orders: Orders AMB HCG Urine Test Today Z32.01 - Encounter for test, result positive, Z32.02 - Encounter for test, result negative AMB 14 Panel Urine Drug Screen Today Z51.81 - Encounter for therapeutic drug level monitoring AMB Naltrexone Injection Patient Supplied (NC) Today F10.20 - Alcohol dependence, uncomplicated
== END 2023-07-27 11:44 | disposition home or self-care (01) ==
PROVIDERS: PCP Internal Medicine
DX: Z32.02 Encounter for pregnancy test, result negative (principal); Z32.01 Encounter for pregnancy test, result positive; F10.20 Alcohol dependence, uncomplicated; Z51.81 Encounter for therapeutic drug level monitoring

== ENCOUNTER → 2023-07-27 11:13 | Outpatient (BNVA) | payer OTHER, SELFPAY | PROVIDERS: PCP Internal Medicine | DX: F10.20 Alcohol dependence, uncomplicated (principal) | CPT/HCPCS: 80305; 81025; 96372; J2315 ==

== ENCOUNTER 2024-06-26 09:49 | Outpatient (AMB) | payer OTHER, SELFPAY ==
[2024-06-26 09:58] VITALS: BP 120/70; PULSE 71; RESP 22; O2SAT 98
--- NOTE | 2024-06-26 09:58 | MHC.AM.SUB ---
Vital Signs 06/26/24 09:58 BP 120/70 Blood Pressure Location Lt brachial Position Sitting Respiration 22 H Pulse 71 Pulse Oximetry (%) 98 Oxygen Delivery Method Room Air Intake Visit Reasons: Restart Allergies amoxicillin Allergy (Unknown, Verified 07/27/23 11:21) Unknown HPI HPI Restart: Details: Patient presents to re-establish care for AUD Reports that over the last several months she has started to drink, gradually increasing to drinking daily Admitted in May to [facility] for alcohol withdrawal management Drinking vodka 300ml daily Last drink Monday 2 nips Currently at [facility] (started June 10) Sleep and appetite improved Anxiety improved Labs completed at [facility] Taking immodium 2mg OTC QD for IBS No other medications--interested in restarting vivitrol Review of Systems Const Reports as per HPI GI Denies heartburn, Denies loose stools and Denies nausea Psych Reports anxiety and Reports depression Physical Exam Vital Signs: Last Vital Signs Pulse 71 06/26/24 09:58 Resp 22 H 06/26/24 09:58 BP 120/70 06/26/24 09:58 Pulse Ox 98 06/26/24 09:58 Oxygen Delivery Method Room Air 06/26/24 09:58 Const General: cooperative, healthy appearing and no acute distress Orientation/consciousness: patient oriented x3 Limitations: no limitations Neuro General: patient oriented x3 Psych Appearance: well kempt Speech and movement: Normal speech and movement present Affect: normal affect Attitude: cooperative Thought process: Normal thought process present Thought content: Normal thought content present Insight: Good insight present (Psych) Judgement: Good judgement present (Psych) Assessment & Plan Assessment & Plan (1) Alcohol use disorder, severe, dependence: Code(s): F10.20 - Alcohol dependence, uncomplicated Category: Medical Plan: restart PO naltrexone vivitrol ordered follow up one month for injection will bring lab work from [facility] to be scanned in Medications: New naltrexone 50 mg PO DAILY 90 tabs 0RF
--- OUTSIDE RECORDS SUMMARY | 2024-06-26 11:14 | XMS_ITS | Clinical Summary ---
Author Organization [employer] Address [address] [place] [address] [address] [place] [address] Care Team Providers Care Refuse Driver Name Role Phone Anika Gonzalez MD Primary Care Provider [phone] Allergies Active Allergy Reactions Criticality Noted Date Comments Amoxicillin Unknown 06/16/2022 Encounters Date Type Department Care Team Description 06/06/2024 Telephone [place] [address], [place] [id number] Anika Gonzalez MD from Last 3 Months Immunizations Name Administration Dates Next Due DTaP 04/28/2006, 2,06/03/1988,08/03,05/05/1987,02/02/1987 Hep A, Adult 05/04/2007 IPV 10/03/1991, 9,06/03/1988,05/05 MMR 01/16/1992,02/03/1988 Meningococcal [id number] [id number] 12/17/2004 Moderna Covid-19 Vaccine 12+ 05/24/2020,04/26/19 21 TD (adult), 2 Lf tetanus tox oid, preservative free, adsorbed 01/20/1999 Tdap 11/15/2013 Social History Tobacco Use Types Packs/Day Years Used Date Smoking Tobacco: Never Assessed Comments Unknown Sex and Gender Information Value Date Recorded Sex Assigned at Not on file Legal Sex Female 8:36 PM EDT Gender Identity Not on file Sexual Orientation Not on file Last Filed Vital Signs Vital Sign Reading Time Taken Comments Blood Pressure 124/86 11/25/2021 2:15 PM EDT Pulse 85 08/20/2020 2:45 PM EDT Temperature - - Respiratory Rate - - Oxygen Saturation - - Inhaled Oxygen Concentration - - Weight 87.1 kg (192 lb) 11/25/2021 2:15 PM EDT Height 160 cm (5' 3 ) 11/25/2021 2:15 PM EDT Body Mass Index 34.01 11/25/2021 2:15 PM EDT Plan of Treatment Health Maintenance Due Date Last Done Comments Depression Screening 1986 Alcohol/Substance Use Screening 1998 Tobacco Screening 1998 Family Planning (PISQ) 2001 Hepatitis B Vaccines (1 of 3 - 19+ 3-dose series) 2005 Pap Smear 11/05/2007 Cervical Cancer Screening 2016 HPV/Cotest 2016 DTaP/Tdap/Td Vaccines (8 - Td or Tdap) 11/16/2023 11/15/2013, 04/28/2006, 01/20/1999, Additional history exists COVID-19 Vaccine ( season) 2023 05/24/2020, 04/26/2020 Influenza Vaccine (#1) 2023 Zoster Vaccines (1 of 2) 2036 RSV Patients and Patients Aged 60 years or older (1 - 1-dose 75+ series) 2061 IPV Vaccines Completed 10/03/1991, 01/22, 06/03/1988, Additional history exists Meningococcal Vaccine Completed 12/17/2004 Hepatitis A Vaccines Aged Out 05/04/2007 No long er eligible based on patient's age to complete this topic HIB Vaccines Aged Out No longer eligi ble based on patient's age to complete this topic HPV Vaccines Aged Out No longer eligi ble based on patient's age to complete this topic Pneumococcal Vaccine: Pediatrics (0 to 5 Years) and At-Risk Patients (6 to 49) Years) Aged Out No longer eligible based on patient's age to complete this topic RSV under 20 months Aged Out No longe r eligible based on patient's age to complete this topic Rotavirus Vaccines Aged Out No longer eligible based on patient's age to complete this topic Care Teams Refuse Driver Relationship Specialty Start Date End Date Anika Gonzalez MD [address] [place] [address] PCP - General Internal Medicine 06/29/22
--- OUTSIDE RECORDS SUMMARY | 2024-06-26 11:14 | XMS_ITS | Encounter Summary ---
Author Organization [employer] Address [address] [facility] 7t [place] [address] Care Team Providers Care Lining Repairer Name Role Phone Anika Gonzalez MD Primary Care Provider [phone] Encounter Details Date Type Department Care Team (Late st Contact Info) Description 06/06/2024 Telephone [place] [facility] [address] [place], [place] [phone] Anika Gonzalez MD [address] [place] [address] Social History Tobacco Use Types Packs/Day Years Used Date Smoking Tobacco: Never Assessed Comments Unknown Sex and Gender Information Value Date Recorded Sex Assigned at Not on file Legal Sex Female 8:36 PM EDT Gender Identity Not on file Sexual Orientation Not on file documented as of this encounter Miscellaneous Notes * Telephone Encounter - Gloria Gaines LPN - 06/10/2024 10:29 AM EST No return call from patient. Letter mailed to patient. * Telephone Encounter - Anju Siu LPN - 06/08/2024 9:02 AM EST LMOM to CB. * Telephone Encounter - Nani Cowart LPN - 06/07/2024 9:22 AM EST Left message for pt to call back. * Telephone Encounter - Nani Cowart LPN - 06/06/2024 1:39 PM EST Call to patient to discuss recent admission/hospitalization and offer office visit. Left message for pt to call back. Date of hospitalization: 06/02/24 Discharge date: 06/05/24 Hospital: [facility] Records on file: yes Discharge diagnosis: alcohol intoxication Patient described events as: alcohol intoxication, nausea, vomiting, wishing to detox Follow-up scheduled: Left message for pt to call back * Telephone Encounter - Nani Cowart LPN - 06/06/2024 1:35 PM EST Images from the original note were not included. Nani Nix to [place] 06/06/24 12:39 PM Pt was seen at [facility] ED 06/02, note attached. documented in this encounter Plan of Treatment Not on file documented as of this encounter Visit Diagnoses Not on filedocumented in this encounter Care Teams Lining Repairer Relationship Specialty Start Date End Date Anika Gonzalez MD [address] [place] [id number] PCP - General Internal Medicine 06/29/22 documented as of this encounter
== END 2024-06-26 10:38 | disposition home or self-care (01) ==
PROVIDERS: PCP Internal Medicine; Visit Provider Nurse Practitioner Psychiatric/Mental Health
DX: F10.20 Alcohol dependence, uncomplicated (principal)
CPT/HCPCS: 99214

== ENCOUNTER 2024-07-19 09:54 | Outpatient (AMB) | payer OTHER, SELFPAY ==
--- NOTE | 2024-07-19 09:57 | AM.OFFVISNUR ---
Vital Signs 07/19/24 09:58 BP 102/66 Pulse 88 Pulse Oximetry (%) 98 Intake Visit Reasons: vivitrol injection Allergies amoxicillin Allergy (Unknown, Verified 07/19/24 09:57) Unknown Coding
[2024-07-19 09:58] VITALS: BP 102/66; PULSE 88; O2SAT 98
== END 2024-07-19 14:12 | disposition home or self-care (01) ==
LOC: HO.HCC 09:54
PROVIDERS: PCP Internal Medicine
DX: F10.20 Alcohol dependence, uncomplicated (principal)

== ENCOUNTER → 2024-07-19 09:54 | Outpatient (BNVA) | payer OTHER, SELFPAY | PROVIDERS: PCP Internal Medicine | DX: F10.20 Alcohol dependence, uncomplicated (principal) | CPT/HCPCS: 96372; J2315 ==

== ENCOUNTER 2024-08-21 15:09 | Outpatient (AMB) | payer OTHER, SELFPAY ==
[2024-08-21 15:25] VITALS: PULSE 98; O2SAT 99; BMI 32.4
--- NOTE | 2024-08-21 15:25 | AM.OFFVISNUR ---
Vital Signs 08/21/24 15:25 Height 5 ft 2 in Weight 80.286 kg BMI 32.4 Pulse 98 Pulse Source Pulse Oximeter Pulse Oximetry (%) 99 Oxygen Delivery Method Room Air Intake Visit Reasons: Injection Allergies amoxicillin Allergy (Unknown, Verified 07/19/24 09:57) Unknown Results AMB Test Urine AMB Test Urine Negative Last Edit by Tomás Knight CMA on 08/21/24 15:29 Assessment & Plan Assessment & Plan Orders: Orders AMB Naltrexone Injection - Practice Supplied Today F10.20 - Alcohol dependence, uncomplicated AMB 14 Panel Urine Drug Screen Today Z51.81 - Encounter for therapeutic drug level monitoring AMB HCG Urine Test Today Z32.02 - Encounter for test, result negative Medications: New Vivitrol ER (naltrexone microspheres) 380 mg IM ONCE 1 ea 0RF NS F10.20 - Alcohol dependence, uncomplicated Coding
--- NOTE | 2024-08-21 16:04 | AM.OFFVISNUR ---
Vital Signs 08/21/24 15:25 Height 5 ft 2 in Weight 80.286 kg BMI 32.4 Pulse 98 Pulse Source Pulse Oximeter Pulse Oximetry (%) 99 Oxygen Delivery Method Room Air Intake Visit Reasons: Injection Allergies amoxicillin Allergy (Unknown, Verified 07/19/24 09:57) Unknown Nursing Note Lori presents today for her four week AUD check in and Vivitrol injection. Lori is AXOX3, calm and cooperative with appropriated affect. Lori reports doing well in recovery, though a bit frustrated with recent relapse. She reports working with [facility] [employer] and attending AA meetings several times per week, she has found a new home group and is ready to request another member to sponsor her. Lori denies current cravings. She made a follow up appointment in 4 weeks for her next injection and to meet with Dr. Kimble. Office Meds Vivitrol 380 mg intramuscular suspension,extended release Performing Provider: Anna Marie Kimble MD Performing Location: [facility] Administered by: Samantha Marcelino RN on 08/21/24 15:59 Dose Route Admin Location Dispensed Lot Number Expiration Date [facility] [employer] 380 mg IM 380 mg [id number] 01/21/27 16025-812-20 [employer] Comments: Pt present for 4 week AUD check in and Vivitrol injection. Pt reports no complications with previous injection and tolerated injection well. Pt educated on signs and symptoms of infection and urged to call [facility] with any concerns or problems. Pt verbalized understanding. 4 week follow-up scheduled with to meet with provider and receive next injection. Results AMB Test Urine AMB Test Urine Negative Last Edit by Tomás Knight CMA on 08/21/24 15:29 AMB 14 Panel Urine Drug Screen Urine Marijuana (THC) Negative Last Edit by Samantha Marcelino RN on 08/21/24 15:58 Urine Cocaine Negative Last Edit by Samantha Marcelino RN on 08/21/24 15:58 Urine Morphine Negative Last Edit by Samantha Marcelino RN on 08/21/24 15:58 Urine Methamphetamine Negative Last Edit by Samantha Marcelino RN on 08/21/24 15:58 Urine Amphetamine Negative Last Edit by Samantha Marcelino RN on 08/21/24 15:58 Urine Benzodiazepine Negative Last Edit by Samantha Marcelino RN on 08/21/24 15:58 Urine Barbiturates Negative Last Edit by Samantha Marcelino RN on 08/21/24 15:58 Urine Methadone Negative Last Edit by Samantha Marcelino RN on 08/21/24 15:58 Urine Buprenorphine Negative Last Edit by Samantha Marcelino RN on 08/21/24 15:58 Urine Tricyclic Antidepressant Negative Last Edit by Samantha Marcelino RN on 08/21/24 15:58 Urine MDMA Negative Last Edit by Samantha Marcelino RN on 08/21/24 15:58 Urine Oxycodone Negative Last Edit by Samantha Marcelino RN on 08/21/24 15:58 Urine Phencyclidine Negative Last Edit by Samantha Marcelino RN on 08/21/24 15:58 Urine Propoxyphene Negative Last Edit by Samantha Marcelino RN on 08/21/24 15:58 AMB Test Urine AMB Test Urine Negative Last Edit by Samantha Marcelino RN on 08/21/24 15:59 Assessment & Plan Assessment & Plan Orders: Orders AMB Naltrexone Injection - Practice Supplied Today F10.20 - Alcohol dependence, uncomplicated AMB 14 Panel Urine Drug Screen Today Z51.81 - Encounter for therapeutic drug level monitoring AMB HCG Urine Test Today Z32.02 - Encounter for test, result negative AMB HCG Urine Test Today F10.20 - Alcohol dependence, uncomplicated Coding
--- OUTSIDE RECORDS SUMMARY | 2024-08-21 16:12 | XMS_ITS | Clinical Summary ---
Author Organization [employer] Address [address] [place] [address] 7t [place] [address] Care Team Providers Care Real Estate Development Manager Name Role Phone Anika Gonzalez MD Primary Care Provider Allergies Active Allergy Reactions Criticality Noted Date Comments Amoxicillin Unknown 06/16/2022 Medications loperamide (Imodium A-D) 2 MG tablet Take 2 mg by mouth if needed in the morning, at noon, and at bedtime. 04/24/19 10 Active Vivitrol injection Inject 380 mg into the muscle every 28 (twenty-eight) days. 07/12/19 24 Active thiamine (Vitamin B-1) 100 MG tablet Take 1 tablet by mouth 2 times daily. 06/05/19 25 Active Levonorgestrel (Liletta, 52 MG,) 20.1 MCG/DAY intrauterine device 52 mg by Intrauterine route Once per day. Active naltrexone (Depade) 50 MG tablet Take 50 mg by mouth Once per day. 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 Irritable bowel syndrome 06/28/2024 Encounters Date Type Department Care Team Description 08/09/2024 9:30 AM EDT Office Visit [facility] MED[facility] [address] [place] [address] Anika Gonzalez MD Routine medical exam (Primary Dx); Plantar fasciitis; Irritable bowel syndrome with diarrhea; Immunization due 08/09/2024 Travel 06/28/2024 8:20 AM EST Office Visit [facility] MED[facility] [address] [place] [address] Gloria Breaux, REPLANTING MACHINE OPERATOR-C Irritable bowel syndrome, unspecified type (Primary Dx); Recovering alcoholic (CMS/HCC) 06/27/2024 Travel 06/06/2024 Telephone [facility] [address] [place] [address] Anika Gonzalez MD from Last 3 Months Immunizations Name Administration Dates Next Due DTaP 04/28/2006, 2,06/03/1988,08/03,05/05/1987,02/02/1987 Hep A, Adult 05/04/2007 IPV 10/03/1991, 9,06/03/1988,05/05 MMR 01/16/1992,02/03/1988 Meningococcal MCV4P [id number] 12/17/2004 Moderna Covid-19 Vaccine 12+ 05/24/2020,04/26/19 21 TD (adult), 2 Lf tetanus tox oid, preservative free, adsorbed 01/20/1999 Tdap 08/09/2024,11/15/2013 Social History Tobacco Use Types Packs/Day Years Used Date Smoking Tobacco: Never Smokeless Tobacco: Never Tobacco Cessation:Counseling Given: Not Answered Alcohol Use Standard Drinks/Week Comments Not Currently 0 (1 standard drink = 0.6 oz pur e alcohol) Alcohol Answer Date Recorded How often do you have a drink containing alcohol ? 0 06/28/2024 How many drinks containing a lcohol do you have on a typical day when you are drinking? 0 06/28/2024 How often do you have six or more drinks on one occasion? 0 06/28/2024 Housing Stability Answer Date Recorded What is your housing situation today? I have sim johansen 06/28/[address] you li ve. Do you have problems with any of the following? None of the above 06/28/2024 Food Insecurity Answer Date Recorded Within the past 12 months, y ou worried that your food would run out before you got money to buy more: Never True 06/28/2024 Within the past 12 months,th e food you bought just didn't last and you didn't have enough money to get more: Never True 10/2024 Transportation Answer Date Recorded In the past 12 months, has l ack of transportation kept you from medical appts, meetings, work or from getting things needed for daily living? No 06/28/2024 Utilities Answer Date Recorded In the past 12 months, has t he electric, gas, oil or water company threatened to shut off services in your home? No 06/28/2024 Depression Answer Date Recorded Patient Health Questionnaire-2 Score 1 06/28/2024 Internet Access Answer Date Recorded Internet Access Q1 Yes 06/28/2024 Internet Access Q2 Not on file 06/28/2024 Education Answer Date Recorded What is the highest level of school you have completed or the highest degree you have received? Bachelor's degree (e.g., BA, AB, BS) 06/28/2024 Comments No Sex and Gender Information Value Date Recorded Sex Assigned at Female 06/28/2024 7:53 AM EST Legal Sex Female 8:36 PM EDT Gender Identity Female 06/28/2024 7:53 AM EST Sexual Orientation Official Use Only; I nformation not collected 06/28/2024 7:53 AM EST Occupation Industry Job Start Date Job End Date Not on file Not on file Not on file Not on file Last Filed Vital Signs Vital Sign Reading Time Taken Comments Blood Pressure 130/84 08/09/2024 9:42 AM EDT Pulse 73 08/09/2024 9:42 AM EDT Temperature 36.3 ??C (97.4 ??F) 08/09/2024 9:42 AM ED T Respiratory Rate 16 08/09/2024 9:42 AM EDT Oxygen Saturation - - Inhaled Oxygen Concentration - - Weight 78 kg (172 lb) 08/09/2024 9:42 AM EDT Height 157.5 cm (5' 2 ) 08/09/2024 9:42 AM EDT Body Mass Index 31.46 08/09/2024 9:42 AM EDT Plan of Treatment Upcoming Encounters Date Type Department Care Team (Late st Contact Info) Description 08/22/2025 9:00 AM EDT Office Visit [facility] [address] [place] [address] Anika Gonzalez MD [address] [place] [address] Health Maintenance Due Date Last Done Comments HIV Screening 1986 Hepatitis C Screening 2004 Hepatitis B Vaccines (1 of 3 - 19+ 3-dose series) 2005 Pneumococcal Vaccine: Pediatrics (0 to 5 Years) and At-Risk Patients (6 to 49) Years) (1 of 2 - PCV) 2005 Pap Smear 11/05/2007 Cervical Cancer Screening 2016 HPV/Cotest 2016 COVID-19 Vaccine ( season) 2023 03/05/2021, 05/24/2020, 04/26/2020 Alcohol/Substance Use Screening 06/28/2025 06/28/2024 Depression Screening 06/28/2025 06/28/2024, 06/29/19 Family Planning (PISQ) 06/28/2025 06/28/2024 SDOH Screening 06/28/2025 06/28/2024 Tobacco Screening 06/28/2025 06/28/2024 DTaP/Tdap/Td Vaccines (9 - Td or Tdap) 08/09/2034 08/09/2024, 11/15/2013, 04/28/2006, Additional history exists Zoster Vaccines (1 of 2) 2036 RSV Patients and Patients Aged 60 years or older (1 - 1-dose 75+ series) 2061 IPV Vaccines Completed 10/03/1991, 01/22, 06/03/1988, Additional history exists Meningococcal Vaccine Completed 12/17/2004 Hepatitis A Vaccines Aged Out 05/04/2007 No long er eligible based on patient's age to complete this topic Influenza Vaccine Completed 02/03/2024, , 03/05/2021, Additional history exists HIB Vaccines Aged Out No longer eligi [...] on patient's age to complete this topic Procedures Procedure Name Priority Date/Time Associated Diagnosis Comments COMPREHENSIVE METABOLIC PANEL Routine 08/09/2024 10:19 AM EDT Routine medical exam LIPID PANEL, STANDARD Routine 08/09/2024 10:19 AM EDT Routine medical exam from Last 3 Months Results * (ABNORMAL) Lipid Panel, Standard (08/09/2024 10:19 AM EDT) Cholesterol, Total 195 100 - 199 mg/dL [facility] Triglycerides 59 0 - 149 mg/dL [facility] HDL Cholesterol 63 >39 mg/dL [facility] VLDL Cholesterol Juan 11 5 - 40 mg/dL [facility] LDL Chol Calc ([facility]) 121(H) 0 - 99 mg/dL [facility] Blood Venous blood specimen / Unknown 08/09/2024 10:19 AM EDT 08/09/2024 Narrative [facility] - 08/10/2024 6:05 AM EDT Performed at: ??01 - [facility] [address] ??[id number] Asset Analyst: Orin Snyder MD, Phone: ??[phone] us Anika Gonzalez MD LAB BLOOD ORDERABLES Final Resul t [facility] * (ABNORMAL) Comprehensive metabolic panel (08/09/2024 10:19 AM EDT) Pathologist [facility] Glucose 84 70 - 99 mg/dL [facility] Urea Nitrogen (BUN) 11 6 - 20 mg/dL [facility] Creatinine, Serum 0.90 0.57 - 1.00 mg/dL [facility] 1 eGFR 84 >59 mL/min/1.7 3 [facility] BUN/Creatinine Ratio 12 9 - 23 [facility] Sodium 139 134 - 144 mmol/L [facility] Potassium 4.3 3.5 - 5.2 mmol/L [facility] Chloride 104 96 - 106 mmol/L [facility] Anion Gap 16.0 10.0 - 18.0 mmol/L [facility] Carbon Dioxide 19(L) 20 - 29 mmol/L [facility] Calcium 9.9 8.7 - 10.2 mg/dL [facility] Protein, Total 7.0 6.0 - 8.5 g/dL [facility] Albumin 4.9 3.9 - 4.9 g/dL [facility] Globulin 2.1 1.5 - 4.5 g/dL [facility] Bilirubin, Total 0.4 0.0 - 1.2 mg/dL [facility] 1 Alkaline Phosphatase 61 44 - 121 IU/L [facility] AST 22 0 - 40 IU/L [facility] ALT 15 0 - 32 IU/L [facility] 1 Blood Venous blood specimen / Unknown 08/09/2024 10:19 AM EDT 08/09/2024 Narrative [facility] - 08/10/2024 6:05 AM EDT Performed at: ??01 - [facility] [address] ??[id number] Asset Analyst: Orin Snyder MD, Phone: ??[phone] us Anika Gonzalez MD LAB BLOOD ORDERABLES Final Resul t [facility] 1 from Last 3 Months Insurance , [address] [place] [address] Care Teams Real Estate Development Manager Relationship Specialty Start Date End Date Anika Gonzalez MD [address] [place] [address] PCP - General Internal Medicine 06/29/22
== END 2024-08-21 16:05 | disposition home or self-care (01) ==
LOC: HO.HCC 15:10
PROVIDERS: PCP Internal Medicine
DX: Z32.02 Encounter for pregnancy test, result negative (principal); Z51.81 Encounter for therapeutic drug level monitoring; F10.20 Alcohol dependence, uncomplicated

== ENCOUNTER → 2024-08-21 15:09 | Outpatient (BNVA) | payer OTHER, SELFPAY | PROVIDERS: PCP Internal Medicine | DX: F10.20 Alcohol dependence, uncomplicated (principal); Z32.02 Encounter for pregnancy test, result negative | CPT/HCPCS: 80307; 81025; 96372; J2315 ==

== ENCOUNTER 2024-09-25 15:18 | Outpatient (AMB) | payer OTHER, SELFPAY ==
--- OUTSIDE RECORDS SUMMARY | 2024-09-25 15:30 | XMS_ITS | Clinical Summary ---
Author Organization [employer] Address [address] [facility] 7t [place] [address] Care Team Providers Care Typewriter Assembler Name Role Phone Anika Gonzalez MD Primary Care Provider [phone] Allergies Active Allergy Reactions Criticality Noted Date Comments Amoxicillin Unknown 06/16/2022 Medications loperamide (Imodium A-D) 2 MG tablet Take 2 mg by mouth if needed in the morning, at noon, and at bedtime. 0 Active Vivitrol injection Inject 380 mg into the muscle every 28 (twenty-eight) days. 4 Active thiamine (Vitamin B-1) 100 MG tablet Take 1 tablet by mouth 2 times daily. 5 Active Levonorgestrel (Liletta, 52 MG,) 20.1 MCG/DAY intrauterine device 52 mg by Intrauterine route Once per day. 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 Irritable bowel syndrome 06/28/2024 Encounters Date Type Department Care Team Description 08/09/2024 9:30 AM EDT Office Visit [facility] MED[facility] [address] [place] [id number] Anika Gonzalez MD Routine medical exam (Primary Dx); Plantar fasciitis; Irritable bowel syndrome with diarrhea; Immunization due; Recovering alcoholic (CMS/HCC) 08/09/2024 Travel 06/28/2024 8:20 AM EST Office Visit [address] [address] Gloria Angela FNP-C Irritable bowel syndrome, unspecified type (Primary Dx); Recovering alcoholic (CMS/HCC) 06/27/2024 Travel from Last 3 Months Immunizations Immunization Administration Dates Next Due DTaP 04/28/2006, 2,06/03/1988,08/03,05/05/1987,02/02/1987 [...] your housing situation today? I have sim haily 06/28/[address] you li [...] (e.g., BA, AB, BS) 06/28/2024 Comments No Intention Date Recorded No desire to become (finding) 0 06/28/2024 Sex and Gender Information Value Date Recorded [...] Description 08/22/2025 9:00 AM EDT Office Visit [facility] [address] [place] [address] Anika Gonzalez MD [address] [place] [address] Health Maintenance Due Date Last Done Comments HIV Screening 1986 Hepatitis C Screening 2004 Hepatitis B Vaccines (1 of 3 - 19+ 3-dose series) 2005 Pneumococcal Vaccine: Pediatrics (0 to 5 Years) and At-Risk Patients (6 to 49) Years) (1 of 2 - PCV) 2005 Pap Smear 11/05/2007 Cervical Cancer Screening 2016 HPV/Cotest 2016 COVID-19 Vaccine ( season) 2023 03/05/2021, 05/24/2020, 04/26/2020 Disability Screening 06/27/2025 06/27/2024 Alcohol/Substance Use Screening 06/28/2025 06/28/2024 Depression Screening [...] on patient's age to complete this topic Meningococcal B Vaccine Aged Out No l onger eligible based on patient's age to complete [...] 40 mg/dL [facility] LDL Chol Calc ([facility]) 121(H) 0 - 99 mg/dL [facility] 1 Blood Venous blood specimen / Unknown 08/09/2024 10:19 AM EDT 08/09/2024 Narrative [facility] - 08/10/2024 6:05 AM EDT Performed at: ??01 - [facility] [address] ??[id number] Insurance Actuary: Orin Snyder MD, Phone: ??[phone] us Anika Gonzalez MD LAB BLOOD ORDERABLES Final Resul t [facility] * (ABNORMAL) Comprehensive metabolic panel (08/09/2024 10:19 AM EDT) Pathologist [facility] Glucose 84 70 - 99 mg/dL [facility] [...] AM EDT Performed at: ??01 - [facility] [address] ??[id number] Insurance Actuary: Orin Snyder MD, Phone: ??[phone] us Anika Gonzalez MD LAB BLOOD ORDERABLES Final Resul t [facility] from Last 3 Months Insurance , [address] [place] [address] Care Teams Typewriter Assembler Relationship Specialty Start Date End Date Anika Gonzalez MD [address] [place] [address] PCP - General Internal Medicine 06/29/22
--- NOTE | 2024-09-25 15:37 | MHC.OFFVIS ---
Vital Signs 09/25/24 15:37 Height 5 ft 2 in Intake Visit Reasons: MAT/Injection Allergies amoxicillin Allergy (Unknown, Verified 09/25/24 15:37) Unknown HPI HPI MAT/Injection: Details: She is doing well. She is looking forward to . She is not drinking and is three months sober and Vivitrol is helping. Review of Systems Const All systems reviewed & are unremarkable except as noted in HPI and below Physical Exam Const General: cooperative Office Meds Vivitrol 380 mg intramuscular suspension,extended release Performing Provider: Anna Marie Kimble MD Performing Location: [facility] Administered by: Anna Marie Kimble MD on 09/25/24 16:27 Dose Route Admin Location Dispensed Lot Number Expiration Date [facility] Manager Credit 380 mg IM left buttock 380 mg [id number] 11/21/26 00179-895-07 [employer] Results AMB 14 Panel Urine Drug Screen Urine Marijuana (THC) Positive Last Edit by Tomás Knight CMA on 09/25/24 15:39 Urine Cocaine Negative Last Edit by Tomás Knight CMA on 09/25/24 15:39 Urine Morphine Negative Last Edit by Tomás Knight CMA on 09/25/24 15:39 Urine Methamphetamine Negative Last Edit by Tomás Knight CMA on 09/25/24 15:39 Urine Amphetamine Negative Last Edit by Tomás Knight CMA on 09/25/24 15:39 Urine Benzodiazepine Negative Last Edit by Tomás Knight CMA on 09/25/24 15:39 Urine Barbiturates Negative Last Edit by Tomás Knight CMA on 09/25/24 15:39 Urine Methadone Negative Last Edit by Tomás Knight CMA on 09/25/24 15:39 Urine Buprenorphine Negative Last Edit by Tomás Knight CMA on 09/25/24 15:39 Urine Tricyclic Antidepressant Negative Last Edit by Tomás Knight CMA on 09/25/24 15:39 Urine MDMA Negative Last Edit by Tomás Knight CMA on 09/25/24 15:39 Urine Oxycodone Negative Last Edit by Tomás Knight CMA on 09/25/24 15:39 Urine Phencyclidine Negative Last Edit by Tomás Knight CMA on 09/25/24 15:39 Urine Propoxyphene Negative Last Edit by Tomás Knight CMA on 09/25/24 15:39 AMB Test Urine AMB Test Urine Negative Last Edit by Tomás Knight CMA on 09/25/24 15:39 Results Reviewed Results Reviewed: Laboratory Last Values [facility] Negative 09/25/24 15:38 POC Urine Buprenorphine Negative 09/25/24 15:38 POC Urine Morphine Negative 09/25/24 15:38 POC Urine Oxycodone Negative 09/25/24 15:38 POC Urine Methadone Negative 09/25/24 15:38 POC Urine Propoxyphene Negative 09/25/24 15:38 POC Urine Barbiturates Negative 09/25/24 15:38 POC U Tricyclic Antidpr Negative 09/25/24 15:38 POC Urine PCP Negative 09/25/24 15:38 POC Ur Amphetamines Negative 09/25/24 15:38 POC Ur Methamphetamine Negative 09/25/24 15:38 POC Urine MDMA Negative 09/25/24 15:38 POC Ur Benzodiazepine Negative 09/25/24 15:38 POC Urine Cocaine Negative 09/25/24 15:38 POC Ur Marijuana (THC) Positive 09/25/24 15:38 Assessment & Plan Assessment & Plan (1) Alcohol use disorder, severe, dependence: Comment: She is doing well with three months recovery and attending meetings Code(s): F10.20 - Alcohol dependence, uncomplicated Category: Medical Plan: See in one month. Continue Vivitrol. Orders: Orders AMB 14 Panel Urine Drug Screen Today Z51.81 - Encounter for therapeutic drug level monitoring AMB HCG Urine Test Today Z32.02 - Encounter for test, result negative AMB Naltrexone Injection - Practice Supplied Today F10.20 - Alcohol dependence, uncomplicated Medications: New naltrexone microspheres ER (Vivitrol) 380 mg IM Q4W 30 days 1 ea 0RF Coding Level of Care Code Est Pt Level 3 (13591) Diagnoses Alcohol use disorder, severe, dependence F10.20
== END 2024-09-25 16:01 | disposition home or self-care (01) ==
LOC: HO.HCC 15:19
PROVIDERS: PCP Internal Medicine; Visit Provider Internal Medicine
DX: Z51.81 Encounter for therapeutic drug level monitoring (principal); Z32.02 Encounter for pregnancy test, result negative; F10.20 Alcohol dependence, uncomplicated
CPT/HCPCS: 99213

== ENCOUNTER → 2024-09-25 15:18 | Outpatient (BNVA) | payer OTHER, SELFPAY | PROVIDERS: PCP Internal Medicine; Visit Provider Internal Medicine | DX: F10.20 Alcohol dependence, uncomplicated (principal); Z51.81 Encounter for therapeutic drug level monitoring | CPT/HCPCS: 80307; 81025; 96372; J2315 ==

== ENCOUNTER 2024-10-23 15:10 | Outpatient (AMB) | payer OTHER, SELFPAY ==
--- OUTSIDE RECORDS SUMMARY | 2024-10-23 15:28 | XMS_ITS | Clinical Summary ---
Author Organization [employer] Address [address] [facility] [address]t [place] [address] Care Team Providers Care Ham Marker Name Role Phone Anika Gonzalez MD Primary [...] AM EDT Office Visit [facility] MEDICAL [address] [place] [address] Anika Gonzalez MD Routine medical exam (Primary Dx); Plantar fasciitis; Irritable bowel syndrome with diarrhea; Immunization due; Recovering alcoholic ([facility]) 08/09/2024 Travel from Last 3 Months Immunizations Immunization [...] 73 08/09/2024 9:42 AM EDT Temperature 36.3 C (97.4 F) 08/09/2024 9:42 AM EDT Respiratory Rate 16 08/09/2024 9:42 AM EDT [...] Description 08/22/2025 9:00 AM EDT Office Visit [facility] MED[facility] [address] [place] [address] Anika Gonzalez MD [address] [place] [address] Health Maintenance Due Date Last Done Comments HIV Screening 1986 Hepatitis C Screening 2004 Hepatitis B Vaccines (1 of 3 - 19+ 3-dose series) 2005 Pneumococcal Vaccine: Pediatrics (0 to 5 Years) and At-Risk Patients (6 to 49) Years (1 of 2 - PCV) 2005 Pap [...] - 08/10/2024 6:05 AM EDT Performed at: 01 - [address] [id number] Pelota Maker: Orin Snyder MD, Phone: [phone] us Anika Gonzalez MD LAB BLOOD ORDERABLES Final Resul t [facility] 1 * (ABNORMAL) Comprehensive metabolic panel (08/09/2024 10:19 AM EDT) Glucose 84 70 - 99 mg/dL [facility] [...] - 08/10/2024 6:05 AM EDT Performed at: 01 - [facility] [address] [id number] Pelota Maker: Orin Snyder MD, Phone: [phone] us Anika Gonzalez MD LAB BLOOD ORDERABLES Final Resul t [facility] 1 from Last 3 Months Insurance , [address] [place] [address] Care Teams Ham Marker Relationship Specialty Start Date End Date Anika Gonzalez MD [address] [place] [id number] PCP - General Internal Medicine 06/29/22
--- NOTE | 2024-10-23 16:17 | AM.OFFVISNUR ---
Intake Visit Reasons: Injection Allergies amoxicillin Allergy (Unknown, Verified 09/25/24 15:37) Unknown Nursing Note Lori presents today for her four week AUD check in and Vivitrol injection. Lori is AXOX3, calm and cooperative with appropriated affect. Lori reports doing well in recovery, today is her 4 month sobriety day, she is attending AA meetings regularly for support. She denies any negative symptoms. Appointment made in 4 weeks for next injection. Office Meds Vivitrol 380 mg intramuscular suspension,extended release Performing Provider: Anna Marie Kimble MD Performing Location: [facility] Administered by: Samantha Marcelino RN on 10/23/24 16:24 Dose Route Admin Location Dispensed Lot Number Expiration Date [facility] Elderly Caregiver 380 mg IM RG 380 mg 2025-3002T 07/22/26 43609-484-41 [employer] Total Dispensed Waste 380 mg 0 % Comments: Pt here for 4week AUD check in and Vivitrol injection. Pt reports no issue with previous injections and tolerated injection well. Educated on signs and symptoms of infection and urged to call [facility] with any questions or concerns. Pt verbalized understanding. Follow-up appointment made in 4 weeks for next injection. Results AMB Test Urine AMB Test Urine Negative Last Edit by Samantha Marcelino RN on 10/23/24 16:29 Assessment & Plan Assessment & Plan Orders: Orders AMB Naltrexone Injection - Practice Supplied Today F10.20 - Alcohol dependence, uncomplicated AMB HCG Urine Test Today F10.20 - Alcohol dependence, uncomplicated, Z32.02 - Encounter for test, result negative Coding
[2024-10-23 16:34] VITALS: BP 138/70; PULSE 84; O2SAT 98
--- NOTE | 2024-10-23 16:34 | AM.OFFVISNUR ---
Vital Signs 10/23/24 16:34 BP 138/70 Blood Pressure Location Lt brachial Position Sitting Pulse 84 Pulse Oximetry (%) 98 Oxygen Delivery Method Room Air Intake Visit Reasons: Injection Allergies amoxicillin Allergy (Unknown, Verified 09/25/24 15:37) Unknown Office Meds Vivitrol 380 mg intramuscular suspension,extended release Performing Provider: Anna Marie Kimble MD Performing Location: [facility] Administered by: Samantha Marcelino RN on 10/23/24 16:24 Dose Route Admin Location Dispensed Lot Number Expiration Date [facility] Senior Architect 380 mg IM RG 380 mg 2025-3002T 07/22/26 [id number] [employer] Total Dispensed Waste 380 mg 0 % Comments: Pt here for 4week AUD check in and Vivitrol injection. Pt reports no issue with previous injections and tolerated injection well. Educated on signs and symptoms of infection and urged to call [facility] with any questions or concerns. Pt verbalized understanding. Follow-up appointment made in 4 weeks for next injection. Results AMB Test Urine AMB Test Urine Negative Last Edit by Samantha Marcelino RN on 10/23/24 16:29 Assessment & Plan Assessment & Plan Orders: Orders AMB Naltrexone Injection - Practice Supplied Today F10.20 - Alcohol dependence, uncomplicated AMB HCG Urine Test Today F10.20 - Alcohol dependence, uncomplicated, Z32.02 - Encounter for test, result negative Coding
== END 2024-10-23 16:25 | disposition home or self-care (01) ==
LOC: HO.HCC 15:11
PROVIDERS: PCP Internal Medicine
DX: F10.20 Alcohol dependence, uncomplicated (principal); Z32.02 Encounter for pregnancy test, result negative

== ENCOUNTER → 2024-10-23 15:10 | Outpatient (BNVA) | payer OTHER, SELFPAY | PROVIDERS: PCP Internal Medicine | DX: F10.20 Alcohol dependence, uncomplicated (principal); Z32.02 Encounter for pregnancy test, result negative | CPT/HCPCS: 81025; 96372; J2315 ==

== ENCOUNTER 2024-11-21 15:22 | Outpatient (AMB) | payer OTHER, SELFPAY ==
[2024-11-21 15:31] VITALS: BP 126/70; PULSE 78; O2SAT 96; BMI 32.2
--- NOTE | 2024-11-21 15:31 | AM.OFFVISNUR ---
Vital Signs 11/21/24 15:31 Height 5 ft 2 in Weight 79.832 kg BMI 32.2 BP 126/70 Pulse 78 Pulse Oximetry (%) 96 Intake Visit Reasons: Injection Allergies amoxicillin Allergy (Unknown, Verified 11/21/24 15:32) Unknown Assessment & Plan Assessment & Plan Orders: Orders AMB Naltrexone Injection - Practice Supplied Today F10.20 - Alcohol dependence, uncomplicated Medications: New Vivitrol ER (naltrexone microspheres) 380 mg IM ONCE 1 ea 0RF NS F10.20 - Alcohol dependence, uncomplicated Coding
--- NOTE | 2024-11-21 15:38 | AM.OFFVISNUR ---
Vital Signs 11/21/24 15:31 Height 5 ft 2 in Weight 79.832 kg BMI 32.2 BP 126/70 Pulse 78 Pulse Oximetry (%) 96 Intake Visit Reasons: Injection Allergies amoxicillin Allergy (Unknown, Verified 11/21/24 15:32) Unknown Nursing Note Lori is here today for q4 week Vivitrol injection. Lori is alert, oriented, cooperative with care and presents with appropriate affect. Lori reports stability in recovery and just celebrated 150 days, she is active in and has good support. No negative symptoms reported. Folllow up in 4 weeks for next injection. Office Meds Vivitrol 380 mg intramuscular suspension,extended release Performing Provider: Anna Marie Kimble MD Performing Location: [facility] Administered by: Samantha Marcelino RN on 11/21/24 16:00 Dose Route Admin Location Dispensed Lot Number Expiration Date [facility] Independent Freight Agent 380 mg IM LG 380 mg 2024-1060T 03/23/27 [id number] [employer] Total Dispensed Waste 380 mg 0 % Comments: Pt here for 4 week Vivitrol 380 mg injection. Pt denies any concern with previous injections and tolerated injection well. Educated on signs and symptoms of infection and encouraged to call [facility] with any related questions or concerns, pt verbalized understanding. Follow-up scheduled in 4 weeks for next injection. Results AMB Test Urine AMB Test Urine Negative Last Edit by Veena Beauchamp CMA on 11/21/24 15:43 Assessment & Plan Assessment & Plan Orders: Orders AMB Naltrexone Injection - Practice Supplied Today Anna Marie Kimble MD F10.20 - Alcohol dependence, uncomplicated AMB HCG Urine Test Today FELICIANO Maxwell Z32.02 - Encounter for test, result negative Coding
== END 2024-11-21 16:09 | disposition home or self-care (01) ==
LOC: HO.HCC 15:23
PROVIDERS: PCP Internal Medicine
DX: F10.20 Alcohol dependence, uncomplicated (principal); Z32.02 Encounter for pregnancy test, result negative

== ENCOUNTER → 2024-11-21 15:22 | Outpatient (BNVA) | payer OTHER, SELFPAY | PROVIDERS: PCP Internal Medicine | DX: F10.20 Alcohol dependence, uncomplicated (principal); Z32.02 Encounter for pregnancy test, result negative | CPT/HCPCS: 81025; 96372; J2315 ==

== ENCOUNTER 2024-12-18 15:26 | Outpatient (AMB) | payer OTHER, SELFPAY ==
--- NOTE | 2024-12-18 15:48 | AM.OFFVISNUR ---
Vital Signs 12/18/24 15:49 Height 5 ft 2 in BP 110/70 Pulse 70 Pulse Oximetry (%) 97 Intake Visit Reasons: Injection Allergies amoxicillin Allergy (Unknown, Verified 12/18/24 16:03) Unknown Nursing Note Lori is here today for q4 week Vivitrol injection. Lori is alert, oriented, cooperative with care and presents with appropriate affect. Lori reports utilizing an IUD for control purposes. Lori reports stability in recovery, she is excited to be going to [facility] to see a show this weekend. Tash is active in and has good support. No negative symptoms reported. Folllow up in 4 weeks for next injection. Office Meds Vivitrol 380 mg intramuscular suspension,extended release Performing Provider: Anna Marie Kimble MD Performing Location: [facility] Administered by: Samantha Marcelino RN on 12/18/24 16:00 Dose Route Admin Location Dispensed Lot Number Expiration Date [facility] Patient Monitor 380 mg IM RG 380 mg 2025-3006T 02/21/27 08648-439-86 [employer] Total Dispensed Waste 380 mg 0 % Comments: Pt is present for 4 week Vivitrol 380 mg injection. Pt denies any concern with previous injections and tolerated injection well. Educated on signs and symptoms of infection and encouraged to call [facility] with any related questions or concerns, pt verbalized understanding. Follow-up scheduled in 4 weeks for next injection. Assessment & Plan Assessment & Plan Orders: Orders AMB Naltrexone Injection - Practice Supplied Today F10.20 - Alcohol dependence, uncomplicated Coding
[2024-12-18 15:49] VITALS: BP 110/70; PULSE 70; O2SAT 97
--- OUTSIDE RECORDS SUMMARY | 2024-12-18 16:39 | XMS_ITS | Clinical Summary ---
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 Irritable bowel syndrome 06/28/2024 Immunizations Immunization Administration Dates Next Due DTaP [...] Description 08/22/2025 9:00 AM EDT Office Visit [facility] MEDICAL [address] [place] [address] Anika Gonzalez MD [address] [place] [address] Health Maintenance Due Date Last Done Comments HIV Screening 1986 HPV Vaccines (1 - 3-dose series) 2001 Hepatitis C Screening 2004 Hepatitis B Vaccines (1 of 3 - 19+ 3-dose series) 2005 Pneumococcal Vaccine: Pediatrics (0 to 5 Years) and At-Risk Patients (6 to 49) Years (1 of 2 - PCV) 2005 Pap Smear 11/05/2007 Cervical Cancer Screening 2016 HPV/Cotest 2016 COVID-19 Vaccine ( season) 2023 03/05/2021, 05/24/2020, 04/26/2020 Influenza Vaccine (#1) 2024 , 02/01/2023, 03/05/2021, Additional history exists Disability Screening 06/27/2025 06/27/2024 Alcohol/Substance Use Screening [...] on patient's age to complete this topic Insurance , [address] [place] [address] Care Teams Studio Operator Relationship Specialty Start Date End Date Anika Gonzalez MD [address] [place] [address] PCP - General Internal Medicine 06/29/22
== END 2024-12-18 16:08 | disposition home or self-care (01) ==
LOC: HO.HCC 15:26
PROVIDERS: PCP Internal Medicine
DX: F10.20 Alcohol dependence, uncomplicated (principal)

== ENCOUNTER → 2024-12-18 15:26 | Outpatient (BNVA) | payer OTHER, SELFPAY | PROVIDERS: PCP Internal Medicine | DX: F10.20 Alcohol dependence, uncomplicated (principal) | CPT/HCPCS: 96372; J2315 ==

== ENCOUNTER 2025-01-16 15:21 | Outpatient (AMB) | payer OTHER, SELFPAY ==
--- NOTE | 2025-01-16 15:38 | AM.OFFVISNUR ---
Vital Signs 01/16/25 15:42 Height 5 ft 2 in BP 122/70 Pulse 62 Pulse Oximetry (%) 97 Intake Visit Reasons: Injection Allergies amoxicillin Allergy (Unknown, Verified 12/18/24 16:03) Unknown Nursing Note Lori is here today for q4 week Vivitrol injection. Lori is alert, oriented, cooperative with care and presents with appropriate affect. Lori reports stability in recovery, no negative symptoms reported. Lori is active in AA and has good support. Looking forward to going to the [facility] again. Folllow up in 4 weeks for next injection. Office Meds Vivitrol 380 mg intramuscular suspension,extended release Performing Provider: Anna Marie Kimble MD Performing Location: [facility] Administered by: Samantha Marcelino RN on 01/16/25 16:03 Dose Route Admin Location Dispensed Lot Number Expiration Date [facility] Transportation Lead 380 mg IM LG 380 mg 2025-1007T 04/23/27 95804-176-93 [employer] Total Dispensed Waste 380 mg 0 % Comments: Pt is present for Vivitrol injection, pt denies complications with previous injections and tolerated injection well. Pt educated on signs and symptoms of infection at the injection site, urged to call [facility] with any questions or concerns. Follow up appointment made in 4 weeks for next injection. Assessment & Plan Assessment & Plan Orders: Orders AMB Naltrexone Injection - Practice Supplied Today F10.20 - Alcohol dependence, uncomplicated Coding
[2025-01-16 15:42] VITALS: BP 122/70; PULSE 62; O2SAT 97
--- OUTSIDE RECORDS SUMMARY | 2025-01-16 19:28 | XMS_ITS | Clinical Summary ---
Author Organization [employer] Address [address] [place] [address] [address] [place] [address] Care Team Providers Care Seo Expert Name Role Phone Anika Gonzalez MD Primary Care Provider [phone] Allergies Active Allergy Reactions Criticality Noted Date [...] Description 08/22/2025 9:00 AM EDT Office Visit [facility] MEDICAL [address] [place] [address] Anika Gonzalez MD [address] [place] [address] Health Maintenance Due Date Last Done Comments [...] 2016 HPV/Cotest 2016 COVID-19 Vaccine ( season) 2024 03/05/2021, 05/24/2020, 04/26/2020 Influenza Vaccine (#1) 2024 [...] complete this topic Insurance , [address] [place] [address] Care Teams Seo Expert Relationship Specialty Start Date End Date Anika Gonzalez MD [address] [place] [address] PCP - General Internal Medicine 06/29/22
== END 2025-01-16 16:09 | disposition home or self-care (01) ==
LOC: HO.HCC 15:21
PROVIDERS: PCP Internal Medicine
DX: F10.20 Alcohol dependence, uncomplicated (principal)

== ENCOUNTER → 2025-01-16 15:21 | Outpatient (BNVA) | payer OTHER, SELFPAY | PROVIDERS: PCP Internal Medicine | DX: F10.20 Alcohol dependence, uncomplicated (principal) | CPT/HCPCS: 96372; J2315 ==

== ENCOUNTER 2025-02-11 15:24 | Outpatient (AMB) | payer OTHER, SELFPAY ==
--- NOTE | 2025-02-11 08:43 | AM.OFFVISNUR ---
Vital Signs 02/11/25 15:35 BP 100/62 Pulse 66 Pulse Oximetry (%) 98 Intake Visit Reasons: injection Allergies amoxicillin Allergy (Unknown, Verified 02/11/25 15:36) Unknown Nursing Note Lori is here for her 4 week Vivitrol injection. Lori is alert, oriented, cooperative with care and presents with appropriate affect. Lori denies any negative symptoms and reports everything is good, boring. She is looking forward to Halloween' hopint that 30lb of candy will be enouth. Follow up in 4 weeks for next injection Office Meds Vivitrol 380 mg intramuscular suspension,extended release Performing Provider: Anna Marie Kimble MD Performing Location: [facility] Administered by: Samantha Marcelino RN on 02/11/25 15:51 Dose Route Admin Location Dispensed Lot Number Expiration Date [facility] Marine Equipment Design Engineer 380 mg IM RG 380 mg 2025-3008T 04/23/27 [id number] [employer] Total Dispensed Waste 380 mg 0 % Comments: Pt is present for Vivitrol injection, pt denies complications with previous injections and tolerated injection well. Pt educated on signs and symptoms of infection at the injection site, urged to call [facility] with any questions or concerns. Follow up appointment made in 4 weeks for next injection. Assessment & Plan Assessment & Plan Orders: Orders AMB Naltrexone Injection - Practice Supplied Today F10.20 - Alcohol dependence, uncomplicated Coding
[2025-02-11 15:35] VITALS: BP 100/62; PULSE 66; O2SAT 98
--- OUTSIDE RECORDS SUMMARY | 2025-02-11 20:31 | XMS_ITS | Clinical Summary ---
Author Organization [employer] Address [address] [place] [address] [address]t [place] [address] Care Team Providers Care Filter Press Supervisor Name Role Phone Anika Gonzalez MD Primary Care Provider [phone] Allergies Active Allergy Reactions Criticality Noted Date [...] Problem Noted Date Diagnosed Date Recovering alcoholic (CMS/[facility]) 06/28/2024 Irritable bowel syndrome 06/28/2024 Immunizations Immunization [...] 9:00 AM EDT Office Visit [facility] MEDICAL [address] [place] [address] Anika Gonzalez MD [address] [place] [address] Health Maintenance Due Date Last Done Comments [...] complete this topic Insurance , [address] [place] [address] Care Teams Filter Press Supervisor Relationship Specialty Start Date End Date Anika Gonzalez MD [address] [place] [address] PCP - General Internal Medicine 06/29/22
== END 2025-02-11 16:22 | disposition home or self-care (01) ==
LOC: HO.HCC 15:24
PROVIDERS: PCP Internal Medicine
DX: F10.20 Alcohol dependence, uncomplicated (principal)

== ENCOUNTER → 2025-02-11 15:24 | Outpatient (BNVA) | payer OTHER, SELFPAY | PROVIDERS: PCP Internal Medicine | DX: F10.20 Alcohol dependence, uncomplicated (principal) | CPT/HCPCS: 96372; J2315 ==

== ENCOUNTER 2025-03-13 15:21 | Outpatient (AMB) | payer OTHER, SELFPAY ==
--- NOTE | 2025-03-13 15:21 | AM.OFFVISNUR ---
Vital Signs 03/13/25 15:27 BP 122/72 Pulse 88 Pulse Oximetry (%) 98 Intake Visit Reasons: Injection Allergies amoxicillin Allergy (Unknown, Verified 03/13/25 15:27) Unknown Nursing Note Lori is here for her 4 week Vivitrol injection. Lori is alert, oriented, cooperative with care and presents with appropriate affect. Lori denies any negative symptoms and is feeling stable. She is looking forward to Thanksgiving though, a bit worried about comments from un-filtered relatives regarding her sobriety- she is at 8 months. Follow-up in four weeks for the next injection. Office Meds Vivitrol 380 mg intramuscular suspension,extended release Performing Provider: Anna Marie Kimble MD Performing Location: [facility] Administered by: Samantha Marcelino RN on 03/13/25 16:00 Dose Route Admin Location Dispensed Lot Number Expiration Date [facility] Biofuels Operations Manager 380 mg IM LG 380 mg 2025-3009T 03/23/27 62770-308-89 [employer] Total Dispensed Waste 380 mg 0 % Comments: Pt is present for Vivitrol injection, pt denies complications with previous injections and tolerated injection well. Pt educated on signs and symptoms of infection at the injection site, urged to call [facility] with any questions or concerns, pt verbalized understanding. Follow up appointment made in 4 weeks for next injection. Assessment & Plan Assessment & Plan Orders: Orders AMB Naltrexone Injection - Practice Supplied Today F10.20 - Alcohol dependence, uncomplicated Coding
[2025-03-13 15:27] VITALS: BP 122/72; PULSE 88; O2SAT 98
--- OUTSIDE RECORDS SUMMARY | 2025-03-13 20:34 | XMS_ITS | Clinical Summary ---
Author Organization [employer] Address [address] [place] [address] [address]t [place] [address] Care Team Providers Care Filing Writer Name Role Phone Anika Gonzalez MD Primary Care Provider [phone] Allergies Active Allergy Reactions Criticality Noted Date [...] Problem Noted Date Diagnosed Date Recovering alcoholic (CMS/[facility]) 06/28/2024 Irritable bowel syndrome 06/28/2024 Immunizations Immunization [...] Description 08/22/2025 9:00 AM EDT Office Visit [facility] MEDICAL [address] [place] [address] Anika Gonzalez MD [address] [place] [address] Health Maintenance Due Date Last Done Comments [...] complete this topic Insurance , [address] [place] [address] Care Teams Filing Writer Relationship Specialty Start Date End Date Anika Gonzalez MD [address] [place] [address] PCP - General Internal Medicine 06/29/22
== END 2025-03-13 16:41 | disposition home or self-care (01) ==
LOC: HO.HCC 15:21
PROVIDERS: PCP Internal Medicine
DX: F10.20 Alcohol dependence, uncomplicated (principal)

== ENCOUNTER → 2025-03-13 15:21 | Outpatient (BNVA) | payer OTHER, SELFPAY | PROVIDERS: PCP Internal Medicine | DX: F10.20 Alcohol dependence, uncomplicated (principal) | CPT/HCPCS: 96372; J2315 ==

== ENCOUNTER 2025-04-10 15:26 | Outpatient (AMB) | payer OTHER, SELFPAY ==
--- NOTE | 2025-04-10 14:53 | AM.OFFVISNUR ---
Vital Signs 04/10/25 15:31 BP 110/60 Pulse 89 Pulse Oximetry (%) 97 Intake Visit Reasons: InJection Allergies amoxicillin Allergy (Unknown, Verified 04/10/25 15:32) Unknown Nursing Note Lori is here for her 4 week Vivitrol injection. Lori is alert, oriented, cooperative with care and presents with appropriate affect. Lori denies any negative symptoms and is feeling stable. Lori reports work is going well and is looking forward to a quiet Xmas with their mother and brother; attending AA meetings on regular basis. Follow up in 4 weeks for the next injection. Office Meds Vivitrol 380 mg intramuscular suspension,extended release Performing Provider: Anna Marie Kimble MD Performing Location: [facility] Administered by: Samantha Marcelino RN on 04/10/25 15:39 Dose Route Admin Location Dispensed Lot Number Expiration Date [facility] Orchid Hand 380 mg IM RG 380 mg 2025-3009T 03/23/27 [id number] [employer] Total Dispensed Waste 380 mg 0 % Comments: Pt is present for Vivitrol injection, pt denies complications with previous injections and tolerated injection well. Pt educated on signs and symptoms of infection at the injection site, urged to call [facility] with any questions or concerns, pt verbalized understanding. Follow up appointment made in 4 weeks for next injection. Assessment & Plan Assessment & Plan Orders: Orders AMB Naltrexone Injection - Practice Supplied Today F10.20 - Alcohol dependence, uncomplicated Coding
[2025-04-10 15:31] VITALS: BP 110/60; PULSE 89; O2SAT 97
--- OUTSIDE RECORDS SUMMARY | 2025-04-10 19:24 | XMS_ITS | Clinical Summary ---
Author Organization [employer] Address [address] [place] [address] [address]t [place] [address] Care Team Providers Care Suction Worker Name Role Phone Anika Gonzalez MD Primary Care Provider [phone] Allergies Active Allergy Reactions Criticality Noted Date [...] Problem Noted Date Diagnosed Date Recovering alcoholic (CMS/[facility]) 06/28/2024 Irritable bowel syndrome 06/28/2024 Immunizations [...] Description 08/22/2025 9:00 AM EDT Office Visit [facility] MEDICAL [address] [place] [address] Anika Gonzalez MD [address] [place] [address] Health Maintenance Due Date Last Done Comments [...] complete this topic Insurance , [address] [place] [address] Care Teams Suction Worker Relationship Specialty Start Date End Date Anika Gonzalez MD [address] [place] [address] PCP - General Internal Medicine 06/29/22
== END 2025-04-10 16:05 | disposition home or self-care (01) ==
LOC: HO.HCC 15:26
PROVIDERS: PCP Internal Medicine
DX: F10.20 Alcohol dependence, uncomplicated (principal)

== ENCOUNTER → 2025-04-10 15:26 | Outpatient (BNVA) | payer OTHER, SELFPAY | PROVIDERS: PCP Internal Medicine | DX: F10.20 Alcohol dependence, uncomplicated (principal); Z79.899 Other long term (current) drug therapy | CPT/HCPCS: 96372; J2315 ==